=== PATIENT | male | born 1945 | race Caucasian/White ===

== ENCOUNTER → 2017-05-16 | Outpatient (CLI) | payer MEDICARE ==
[~2017-05-16] MED LIST: ASPI-892 PO; CALC-557 PO; HYDR-3730 PO; MULT-974 PO; OMEG-12 PO; SENN-75 PO; SIMV40TA4 PO
--- NOTE | 2017-05-16 13:00 | Diagnostic Imaging Report ---
INDICATION: Neck pain. COMPARISON: None. FINDINGS: Five views of the cervical column demonstrate normal alignment. There is no subluxation or fracture. Moderate degenerative changes are seen throughout the disc spaces and facet joints. There is no osseous lesion. IMPRESSION: Diffuse degenerative changes. Dictated by: Dictated on workstation # [id number]
== END ==
LOC: RAD 11:08
PROVIDERS: ATTEND Family Medicine
DX: M47.812 Spondylosis without myelopathy or radiculopathy, cervical region (principal)
CPT/HCPCS: 72040

== ENCOUNTER → 2018-06-17 | Outpatient (CLI) | payer MEDICARE ==
--- NOTE | 2018-06-18 12:39 | Diagnostic Imaging Report ---
EXAM: CT CHEST SCREENING WO INDICATION: 31-kpba-npfx smoking history. Current smoker. COMPARISON: Chest radiographs 08/15/2011. FINDINGS: Advanced centrilobular emphysema. There are also advanced fibrotic interstitial opacities, greatest in the peripheral lobes. Mild bronchiectasis. There are regions of honeycombing in both lower and the right upper lobes. Scattered calcified pleural plaques. No suspicious pulmonary nodule or mass. Scattered calcified granulomas. No pleural effusion or pneumothorax. No endobronchial lesions. No mediastinal, hilar or axillary lymphadenopathy. Normal heart size. No pericardial effusion. Moderate atherosclerotic calcifications including coronary. The visualized upper abdominal contents are unremarkable. No acute osseous findings. IMPRESSION: 1. No suspicious pulmonary nodule or mass. Recommend continued annual screening with low-dose chest CT in 12 months. 2. Advanced centrilobular emphysema. There is also advanced peripheral fibrosis, greatest in the lung bases. Calcified pleural plaques. There are regions of honeycombing suggesting UIP. 3. Moderate atherosclerotic calcifications including coronary. LUNG-RADS CATEGORY: 2. MODIFIER: S. Please note that the low-dose technique of this chest CT is of non-diagnostic quality. This study is only intended for lung cancer screening of high risk patients. Dictated by: Dictated on workstation # [id number]
== END ==
LOC: RAD 13:15
PROVIDERS: ATTEND Family Medicine
DX: Z12.2 Encounter for screening for malignant neoplasm of respiratory organs (principal); J84.10 Pulmonary fibrosis, unspecified; J43.2 Centrilobular emphysema; I25.10 Atherosclerotic heart disease of native coronary artery without angina pectoris; J92.9 Pleural plaque without asbestos; J98.4 Other disorders of lung; F17.210 Nicotine dependence, cigarettes, uncomplicated

== ENCOUNTER → 2018-06-27 | Outpatient (CLI) | payer MEDICARE ==
--- NOTE | 2018-06-27 10:41 | Diagnostic Imaging Report ---
Lumbar spine. INDICATION: Pain radiating into lower lumbar region. AP, lateral and spot lateral views were obtained. FINDINGS: There may be a very mild compression deformity of the inferior endplate of L1. This finding is no different than noted on the prior abdomen exam of 05/04/2009. The other vertebral body heights and alignment are generally within normal limits. The intervertebral spaces are fairly well-maintained. There is no fracture or acute bony abnormality evident. There is no sign of a paraspinal mass. There are calcifications overlying the right mid abdomen. These may be vascular calcifications within the right renal pelvis. These findings were also present on the prior exam. IMPRESSION: 1. There is no evidence for an acute bony abnormality. 2. If there is clinical concern regarding spinal stenosis or nerve root encroachment, then MRI would be recommended for further evaluation. Dictated by: Dictated on workstation # [id number]
== END ==
LOC: RAD 10:11
PROVIDERS: ATTEND Family Medicine
DX: M54.5 Low back pain (principal)
CPT/HCPCS: 72100

== ENCOUNTER → 2018-07-02 | Outpatient (CLI) | payer MEDICARE ==
[~2018-07-02] MED LIST changes: +RT-ALBUTEROL SULF 2.5 MG/3 ML PRE-MIX VIAL INH ONE; +RT-ALBUTEROL SULF 2.5 MG/3 ML PRE-MIX VIAL ONE
== END ==
LOC: RT 12:49
PROVIDERS: ATTEND Family Medicine
DX: J44.9 Chronic obstructive pulmonary disease, unspecified (principal); Z87.891 Personal history of nicotine dependence
CPT/HCPCS: 94060; 94726; 94729

== ENCOUNTER 2018-07-07 13:22 | Outpatient (RCR) | payer MEDICARE ==
[~2018-07-07 13:22] MED LIST changes: -RT-ALBUTEROL SULF 2.5 MG/3 ML PRE-MIX VIAL INH ONE; -RT-ALBUTEROL SULF 2.5 MG/3 ML PRE-MIX VIAL ONE
[2018-07-07 14:11] LABS: ABSOLUTE RETIC # 33 10e9/L (24-90); BASOPHILS % (AUTO) 0 % (0-10); EOSINOPHILS # (AUTO) 0.1 10^3/uL (0.0-0.3); EOSINOPHILS % (AUTO) 2 % (0-10); HEMATOCRIT 50 % (40-54); HEMOGLOBIN 16.9 G/DL (13.3-17.7); LYMPHOCYTES # (AUTO) 1.3 X 10^3 (1.0-4.0); LYMPHOCYTES % (AUTO) 15 % (12-44); MEAN CORPUSCULAR HEMOGLOBIN 34 PG (25-34); MEAN CORPUSCULAR HGB CONC 34 G/DL (32-36); MEAN CORPUSCULAR VOLUME 100 FL (80-99); MEAN PLATELET VOLUME 9.5 FL (7.4-10.4); MONOCYTES # (AUTO) 0.3 X 10^3 (0.0-1.0); MONOCYTES % (AUTO) 4 % (0-12); NEUTROPHILS # (AUTO) 6.8 X 10^3 (1.8-7.8); NEUTROPHILS % (AUTO) 80 % (42-75); PLATELET COUNT 156 10^3/uL (130-400); RED CELL DISTRIBUTION WIDTH 13.9 % (10.0-14.5); RETICULOCYTE % 0.65 % (0.50-2.40); WHITE BLOOD COUNT 8.6 10^3/uL (4.3-11.0)
[2018-07-07 14:42] LABS: ALBUMIN 3.6 GM/DL (3.2-4.5); BILIRUBIN,TOTAL 0.5 MG/DL (0.1-1.0); CALCIUM 9.3 MG/DL (8.5-10.1); CREATININE SERUM 1.28 MG/DL (0.60-1.30); POTASSIUM 3.9 MMOL/L (3.6-5.0); TOTAL PROTEIN 6.8 GM/DL (6.4-8.2)
== END 2018-10-05 | disposition home or self-care (01) ==
LOC: ONC 13:22
PROVIDERS: ATTEND Internal Medicine Hematology & Oncology
DX: R79.89 Other specified abnormal findings of blood chemistry (principal); J43.9 Emphysema, unspecified; I73.9 Peripheral vascular disease, unspecified; F17.210 Nicotine dependence, cigarettes, uncomplicated; Z86.718 Personal history of other venous thrombosis and embolism; Z80.42 Family history of malignant neoplasm of prostate
CPT/HCPCS: 36415; 80053; 82375; 82668; 83615; 85025; 85045; 99214

== ENCOUNTER 2018-09-02 10:30 | Outpatient (RCR) | payer MEDICARE | END 2018-09-02 17:00 | disposition home or self-care (01) | PROVIDERS: ATTEND Family Medicine | DX: M54.5 Low back pain (principal) ==

== ENCOUNTER 2019-04-22 10:27 | Outpatient (RCR) | payer MEDICARE ==
--- NOTE | 2019-04-15 14:15 | NUR ---
Pt scheduled for pulmonary rehab evaluation; looked up pt's file to see if current PFT in records and to get mailing address to send paperwork
[2019-04-28 09:28] VITALS: BP 121/63
[2019-05-05 09:30] VITALS: BP 142/60
[2019-05-05 10:43] VITALS: BP 110/60
[2019-05-07 09:20] VITALS: BP 122/63
[2019-05-07 10:20] VITALS: BP 100/45
[2019-05-14 09:15] VITALS: BP 130/50
[2019-05-14 10:05] VITALS: BP 110/48
[2019-05-19 09:15] VITALS: BP 100/52
[2019-05-19 10:30] VITALS: BP 100/48
[2019-05-21 09:30] VITALS: BP 124/60
[2019-05-21 10:38] VITALS: BP 130/50
[2019-05-26 09:23] VITALS: BP 110/42
[2019-05-26 10:30] VITALS: BP 150/60
[2019-06-02 09:30] VITALS: BP 100/63
[2019-06-02 10:40] VITALS: BP 120/43
[2019-06-04 09:20] VITALS: BP 145/60
[2019-06-04 10:25] VITALS: BP 120/60
[2019-06-09 09:15] VITALS: BP 125/60
[2019-06-09 10:18] VITALS: BP 105/40
[2019-06-16 09:30] VITALS: BP 118/40
[2019-06-16 10:42] VITALS: BP 115/50
[2019-06-18 09:20] VITALS: BP 110/60
[2019-06-18 10:18] VITALS: BP 100/40
[2019-06-25 08:35] VITALS: BP 143/80
[2019-06-25 09:13] VITALS: BP 120/50
== END 2019-07-21 | disposition home or self-care (01) ==
LOC: PULM 10:27
PROVIDERS: ATTEND Family Medicine
DX: J44.9 Chronic obstructive pulmonary disease, unspecified (principal)
CPT/HCPCS: 99211

== ENCOUNTER → 2019-09-04 | Outpatient (CLI) | payer MEDICARE ==
--- NOTE | 2019-09-04 12:57 | Diagnostic Imaging Report ---
CT Lung Screening INDICATION: Lung cancer screening, 56 pack year history of smoking, current smoker COMPARISON: 06/17/2018 TECHNIQUE: Noncontrast, low-dose CT imaging performed according to the lung cancer screening protocol. Auto Exposure Controls were utilize during the CT exam to meet ALARA standards for radiation dose reduction. FINDINGS: No pathologically enlarged lymph nodes within the chest. Scattered vascular calcifications within the thoracic aorta and its branch vessels, including within the coronary arteries. No aneurysmal dilatation of the thoracic aorta. The heart is within normal limits in size. No pericardial effusion. No pleural effusion. Mild thin partially calcified pleural plaques are again noted bilaterally. Moderate background centrilobular emphysematous changes. Stable pleural-based 6 mm pulmonary nodule within the left upper lobe, axial image 139. Significant reticular opacities and interstitial lung changes are again noted throughout the lungs bilaterally, greatest within the periphery of the lungs. This has a slight basilar predilection. Mild honeycombing within the lung bases is again noted. No new pulmonary nodule. The trachea is patent. The visualized upper abdomen is unremarkable. Scattered osseous degenerative changes without acute osseous abnormality. IMPRESSION: Stable moderate background fibroemphysematous changes and chronic obstructive pulmonary disease. Mild honeycombing does persist within the lung bases, consistent with a UIP pattern. Stable 6 mm pleural-based left upper lobe pulmonary nodule without new suspicious pulmonary nodule. Stable thin bilateral calcified pleural plaques. LUNG-RADS CATEGORY: 2S: Benign appearance or behavior. MODIFIER: S: Moderate background fibroemphysematous changes and chronic obstructive pulmonary disease. FOLLOW-UP: Continued annual screening with low dose CT of the chest in one year. Dictated by: Dictated on workstation # [id number]
== END ==
LOC: RAD 11:38
PROVIDERS: ATTEND Nurse Practitioner Family
DX: Z12.2 Encounter for screening for malignant neoplasm of respiratory organs (principal); J43.8 Other emphysema; J98.4 Other disorders of lung; J92.9 Pleural plaque without asbestos; R91.1 Solitary pulmonary nodule; F17.210 Nicotine dependence, cigarettes, uncomplicated

== ENCOUNTER → 2019-09-09 | Outpatient (CLI) | payer MEDICARE ==
--- NOTE | 2019-09-09 13:15 | Diagnostic Imaging Report ---
PROCEDURE: CT head without contrast. TECHNIQUE: Multiple contiguous axial images were obtained through the brain without the use of intravenous contrast. Auto Exposure Controls were utilized during the CT exam to meet ALARA standards for radiation dose reduction. INDICATION: Vertigo. Confusion. Memory loss. COMPARISON: None. FINDINGS: Age-indeterminate area of ischemia is visualized in the left frontal lobe. No evidence of hemorrhage or mass effect. No large acute territorial ischemia is seen. No midline shift or mass effect. Decreased attenuation is seen in the periventricular and subcortical white matter. The ventricles and cortical sulci are prominent. The basilar cisterns are patent and unremarkable. The calvarium is intact. The visualized paranasal sinuses are clear. IMPRESSION: 1. Focus of age-indeterminate ischemia involving the left frontal lobe in the precentral gyrus. Recommend correlation with patient's symptoms and if indicated, brain MRI to evaluate for acuity. 2. No evidence of hemorrhage or mass effect. No large acute territorial ischemia. 3. Chronic microvascular disease with generalized parenchymal volume loss. Dictated by: Dictated on workstation # [id number]
== END ==
LOC: RAD 12:13
PROVIDERS: ATTEND Family Medicine
DX: I67.82 Cerebral ischemia (principal); G93.89 Other specified disorders of brain; R42 Dizziness and giddiness; R41.3 Other amnesia; R41.0 Disorientation, unspecified
CPT/HCPCS: 70450

== ENCOUNTER → 2019-09-14 | Outpatient (CLI) | payer MEDICARE ==
--- NOTE | 2019-09-14 09:52 | Diagnostic Imaging Report ---
PROCEDURE: MR imaging of the brain without contrast. TECHNIQUE: Multiplanar, multisequence MR imaging of the brain was performed without contrast. INDICATION: Abnormal recent head CT raising question of a stroke, left frontal lobe. Studies performed for further evaluation. Correlation is made with head CT from 09/09/2019. The ventricles and sulci are prominent consistent with cerebral volume loss and age-related atrophy. Moderate periventricular and subcortical white matter signal abnormalities are noted consistent with chronic microvascular ischemia. Diffusion-weighted images are without diffusion restriction to suggest acute ischemia. No midline shift. No acute intra-axial or extra-axial hemorrhage is detected. Corpus callosum is unremarkable. The sella and parasellar structures are unremarkable. Note is made of absence of the normal flow void of the distal left internal carotid artery consistent with a left carotid occlusion. IMPRESSION: 1. Changes of chronic microvascular ischemia and cerebral atrophy. No acute intracranial hemorrhage or evidence of acute nonhemorrhagic infarct is identified. 2. Finding suggestive of distal left internal carotid artery occlusion. Correlation with carotid Doppler may be useful for further evaluation. Dictated by: Dictated on workstation # [id number]
== END ==
LOC: RAD 07:38
PROVIDERS: ATTEND Family Medicine
DX: I67.82 Cerebral ischemia (principal); G31.9 Degenerative disease of nervous system, unspecified
CPT/HCPCS: 70551

== ENCOUNTER → 2019-09-15 | Outpatient (CLI) | payer MEDICARE | LOC: CARD 08:26 | PROVIDERS: ATTEND Family Medicine | DX: I36.1 Nonrheumatic tricuspid (valve) insufficiency (principal); R01.1 Cardiac murmur, unspecified | CPT/HCPCS: 93306 ==

== ENCOUNTER → 2019-09-25 | Outpatient (CLI) | payer MEDICARE ==
[~2019-09-25] VITALS: Ht 177 cm; Wt 71.0 kg
[~2019-09-25] MED LIST changes: +CATHETER FLUSH 10 ML SYR IV PRN; +REGADENOSON 0.4 MG/5 ML SYR (LEXISCAN) IV ONE
--- NOTE | 2019-09-29 14:41 | STRESS TEST ---
DATE OF SERVICE: 09/25/2019 RESTING AND POST REGADENOSON TECHNETIUM-99M TETROFOSMIN SPECT CT IMAGING ORDERING PHYSICIAN: Dr. Doherty. PRIMARY PHYSICIAN: Dr. Becerra. CLINICAL DIAGNOSIS: Shortness of breath. Baseline images were carried out after injection of 10.9 mCi of technetium-99m Tetrofosmin. This was followed by 0.4 mg regadenoson and 30.1 mCi of technetium-99m Tetrofosmin for stress imaging. The electrocardiogram showed sinus rhythm at baseline. It did not change significantly with regadenoson infusion. The patient tolerated the procedure well. Review of images at rest and following stress does not indicate significant perfusion defects consistent with myocardial ischemia or infarction. Gated images show normal global left ventricular systolic function, normal regional wall motion. Left ventricular end diastolic volume is 81 mL. TID is absent (1.09). CONCLUSIONS: 1. No evidence of any significant myocardial infarction or ischemia on this study. 2. Normal regional wall motion. 3. Normal global left ventricular systolic function with a calculated ejection fraction of 54%. Job ID: [id number] DocumentID: [id number] Dictated Date: 09/29/2019 14:31:49 Contracts Administrator Date: 09/29/2019 14:39:10 Dictated By: MAULIK DOHERTY MD, MA, FACP, FACC,
== END ==
LOC: CARD 06:57
PROVIDERS: ATTEND Internal Medicine Cardiovascular Disease
DX: I49.3 Ventricular premature depolarization (principal); I65.23 Occlusion and stenosis of bilateral carotid arteries; Z72.0 Tobacco use
CPT/HCPCS: 78452; 93017; A9502

== ENCOUNTER 2019-10-02 10:08 | Outpatient (RCR) | payer MEDICARE ==
[~2019-10-02 10:08] MED LIST changes: -CATHETER FLUSH 10 ML SYR IV PRN; -REGADENOSON 0.4 MG/5 ML SYR (LEXISCAN) IV ONE
== END 2019-10-02 11:56 | disposition home or self-care (01) ==
PROVIDERS: ATTEND Family Medicine
DX: M54.6 Pain in thoracic spine (principal); M54.5 Low back pain

== ENCOUNTER 2020-03-09 08:47 | Observation (INO) | payer MEDICARE ==
[~2020-03-09] VITALS: Ht 177.8 cm; Wt 68.7 kg
--- NOTE | 2020-03-09 08:47 | NUR ---
PATIENT HAS CELL PHONE AND WILL KEEP FAMILY UPDATED.
--- NOTE | 2020-03-09 09:10 | ED Neurological Problem ---
General Chief Complaint: Neurological Problems Stated Complaint: STROKE LIKE SYMPTOMS Source: patient Exam Limitations: no limitations History of Present Illness Date Seen by Provider: Mar 09, 2020 Time Seen by Provider: 09:00 Initial Comments Patient is a 74-year-old male who presents to the emergency room today with a chief complaint of dizziness, having to hold onto the [place] to walk this morning. Patient states that he got up and was fine and went out to his garage to smoke a cigarette. He states by the time he was coming back into the house he was having to hold onto the [place] and railings to get back into the home. He denies any syncopal episodes. He denies any chest pain or shortness of breath. He denies any GI symptoms such as nausea vomiting or diarrhea. No problems with bladder. Patient denies any headache. He does have chronic tinnitus. He denies any vision changes other than being "swimmy and dizzy". He denies any unilateral numbness, weakness or tingling. He states he had a similar episode last October when he was told he had a "TIA". By EMS report prior to arrival the patient's blood sugar was 71. He was given some oral glucose and his sugar is now above 100. He states that he takes 2 baby aspirin daily. All other review of systems reviewed and negative except as stated above. Timing/Duration: 1-3 hours Associated Symptoms: No confusion, No loss of consciousness, No numbness in legs/feet, No paresthesia, No slurred speech, No tingling in legs/feet; trouble walking Allergies and Home Medications Allergies Coded Allergies: No Known Drug Allergies (Unverified , 01/07/12) Home Medications Aspirin 81 Mg Tabec, 81 MG PO DAILY, (Reported) Calcium 500 Mg Tablet, 500 MG PO DAILY, (Reported) Hydrocodone/Acetaminophen 1 Each Tablet, 1-2 EACH PO Q6H Prescribed by: SOLOMON MAO on 04/22/14 1040 Multivitamin 1 Each Tablet, 1 EACH PO DAILY, (Reported) [place]-3/Dha/Epa/Fish Oil 1 Each Capsule.dr, 1 EACH PO DAILY, (Reported) Sennosides/Docusate Sodium 1 Each Tablet, 1 EACH PO DAILY, (Reported) Simvastatin 40 Mg Tablet, 40 MG PO DAILY, (Reported) Patient Home Medication List Home Medication List Reviewed: Yes Review of Systems Review of Systems Constitutional: no symptoms reported Eyes: No Symptoms Reported Ears, Nose, Mouth, Throat: no symptoms reported Respiratory: no symptoms reported Cardiovascular: no symptoms reported Gastrointestinal: no symptoms reported Genitourinary: no symptoms reported Musculoskeletal: no symptoms reported Skin: no symptoms reported Psychiatric/Neurological: Other (Acute dizziness) Past Zqgchyy-Vlpiyx-Ebyxpl Hx Immunizations Up To Date Date of Pneumonia Vaccine: Apr 08, 2008 Date of Influenza Vaccine: Jan 06, 2014 Physical Exam Vital Signs Vital Signs - First Documented 03/09/20 08:47 Temp 35.0 Pulse 52 Resp 18 B/P (MAP) 161/83 (109) Pulse Ox 98 O2 Delivery Nasal Cannula Capillary Refill : Height, Weight, BMI Height: 5'10.00" Weight: 165lbs. 4.0oz. 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, no motor/sensory deficits, alert, normal mood/affect, oriented x 3; No abnormal cerebellar tests, No abnormal software reverse engineer II-XII, No aphasia, No EOM palsy, No facial droop, No motor weakness, No sensory deficit, No disoriented x 3 Crainal Nerves: normal hearing, normal speech, PERRL; No abnormal speech, No facial asymmetry, No facial droop, No facial paresthesias, No facial weakness, No tongue deviation to R, No tongue deviation to L Coordination/Gait: normal finger to nose, abnormal gait (Gait not tested secondary to patient's instability and "dizziness"), ABN nose to finger (R) (slight pass pointming); No positive Romberg's sign Motor/Sensory: no motor deficit, no sensory deficit, no pronator drift Skin: normal color, warm/dry Progress/Results/Core Measures Results/Orders Lab Results Laboratory Tests Test 03/09/20 08:54 Range/Units White Blood Count 6.3 4.3-11.0 10^3/uL Red Blood Count 5.39 4.30-5.52 10^6/uL Hemoglobin 17.8 H 13.3-17.7 g/dL Hematocrit 56 H 40-54 % Mean Corpuscular Volume 104 H 80-99 fL Mean Corpuscular Hemoglobin 33 25-34 pg Mean Corpuscular Hemoglobin Concent 32 32-36 g/dL Red Cell Distribution Width 13.3 10.0-14.5 % Platelet Count 143 130-400 10^3/uL Mean Platelet Volume 9.8 9.0-12.2 fL Immature Granulocyte % (Auto) 0 % Neutrophils (%) (Auto) 67 42-75 % Lymphocytes (%) (Auto) 20 12-44 % Monocytes (%) (Auto) 8 0-12 % Eosinophils (%) (Auto) 3 0-10 % Basophils (%) (Auto) 1 0-10 % Neutrophils # (Auto) 4.2 1.8-7.8 10^3/uL Lymphocytes # (Auto) 1.3 1.0-4.0 10^3/uL Monocytes # (Auto) 0.5 0.0-1.0 10^3/uL Eosinophils # (Auto) 0.2 0.0-0.3 10^3/uL Basophils # (Auto) 0.1 0.0-0.1 10^3/uL Immature Granulocyte # (Auto) 0.0 0.0-0.1 10^3/uL Sodium Level 137 135-145 MMOL/L Potassium Level 4.7 3.6-5.0 MMOL/L Chloride Level 98 98-107 MMOL/L Carbon Dioxide Level 28 21-32 MMOL/L Anion Gap 11 5-14 MMOL/L Blood Urea Nitrogen 21 H 7-18 MG/DL Creatinine 1.20 0.60-1.30 MG/DL Estimat Glomerular Filtration Rate 59 BUN/Creatinine Ratio 18 Glucose Level 109 H 70-105 MG/DL Calcium Level 9.0 8.5-10.1 MG/DL My Orders Orders - SON VALDES MD Ct Head Wo (03/09/20 09:03) Cbc With Automated Diff (03/09/20 09:03) Basic Metabolic Panel (03/09/20 09:03) Ed Iv/Invasive Line Start (03/09/20 09:03) Vital Signs/I&O 03/09/20 08:47 Temp 35.0 Pulse 52 Resp 18 B/P (MAP) 161/83 (109) Pulse Ox 98 O2 Delivery Nasal Cannula Diagnostic Imaging Diagonstic Imaging: CT Plain Films/CT/US/NM/MRI: head Comments [facility], [place] NAME: JEROD L[facility]YD [facility] REC#: [id number] PT STATUS: REG ER : 1945 PHYSICIAN: SON VALDES MD ADMIT DATE: 03/09/20/ER Draft Date of Exam:03/09/20 CT HEAD WO INDICATION: Dizziness. Altered balance. TECHNIQUE: Routine non contrast-enhanced axial images were obtained from the skull base to the vertex. Auto Exposure Controls were utilized during the CT exam to meet ALARA standards for radiation dose reduction COMPARISON: 09/09/2019 FINDINGS: The ventricles and cortical sulci are diffusely prominent, compatible with age-related volume loss. There are confluent areas of abnormal, low attenuation in the periventricular white matter. This is consistent with chronic small vessel ischemic changes. There is no midline shift or mass-effect. No acute intra-axial hemorrhage is seen. There are no abnormal areas of increased or decreased density to suggest acute hemorrhage or edema. No extra-axial masses or collections are present. The bony calvarium is intact. The visualized paranasal sinuses are unremarkable. The mastoid air cells are clear. IMPRESSION: 1. No acute intracranial abnormality. No CT evidence of mass, acute infarct or intracranial hemorrhage. 2. Chronic small vessel ischemic changes in the deep white matter Dictated on workstation # [id number] Dict: 03/09/2041 Trans: 03/09/20 0945 REPLACED BY [facility] [id number] Interpreted by: HALI VALDEZ MD Electronically signed by: Departure Communication (Admissions) Time/Spoke to Admitting Phy: 10:[address] Becerra at 1045 accepts patient for observation admission. Requests MRA head and neck Impression Primary Impression: Ataxia Disposition: ADMITTED INPATIENT Condition: Stable Admissions Decision to Admit Reason: Admit from ER (General) Decision to Admit/Date: Mar 09, 2020 Time/Decision to Admit Time: 10:59 Departure-Patient Inst. Referrals: PARISH BECERRA DO (PCP/Family) Primary Care Physician SON VALDES MD Mar 09, 2020 09:10
[2020-03-09 09:19] LABS: BASOPHILS # (AUTO) 0.1 10^3/uL (0.0-0.1); BASOPHILS % (AUTO) 1 % (0-10); EOSINOPHILS # (AUTO) 0.2 10^3/uL (0.0-0.3); EOSINOPHILS % (AUTO) 3 % (0-10); HEMATOCRIT 56 % (40-54); HEMOGLOBIN 17.8 g/dL (13.3-17.7); LYMPHOCYTES # (AUTO) 1.3 10^3/uL (1.0-4.0); LYMPHOCYTES % (AUTO) 20 % (12-44); MEAN CORPUSCULAR HEMOGLOBIN 33 pg (25-34); MEAN CORPUSCULAR HGB CONC 32 g/dL (32-36); MEAN CORPUSCULAR VOLUME 104 fL (80-99); MEAN PLATELET VOLUME 9.8 fL (9.0-12.2); MONOCYTES # (AUTO) 0.5 10^3/uL (0.0-1.0); MONOCYTES % (AUTO) 8 % (0-12); NEUTROPHILS # (AUTO) 4.2 10^3/uL (1.8-7.8); NEUTROPHILS % (AUTO) 67 % (42-75); PLATELET COUNT 143 10^3/uL (130-400); WHITE BLOOD COUNT 6.3 10^3/uL (4.3-11.0)
[2020-03-09 09:24] LABS: POTASSIUM 4.7 MMOL/L (3.6-5.0)
[2020-03-09 09:29] LABS: CREATININE SERUM 1.2 MG/DL (0.60-1.30)
--- NOTE | 2020-03-09 09:45 | Diagnostic Imaging Report ---
INDICATION: Dizziness. Altered balance. TECHNIQUE: Routine non contrast-enhanced axial images were obtained from the skull base to the vertex. Auto Exposure Controls were utilized during the CT exam to meet ALARA standards for radiation dose reduction COMPARISON: 09/09/2019 FINDINGS: The ventricles and cortical sulci are diffusely prominent, compatible with age-related volume loss. There are confluent areas of abnormal, low attenuation in the periventricular white matter. This is consistent with chronic small vessel ischemic changes. There is no midline shift or mass-effect. No acute intra-axial hemorrhage is seen. There are no abnormal areas of increased or decreased density to suggest acute hemorrhage or edema. No extra-axial masses or collections are present. The bony calvarium is intact. The visualized paranasal sinuses are unremarkable. The mastoid air cells are clear. IMPRESSION: 1. No acute intracranial abnormality. No CT evidence of mass, acute infarct or intracranial hemorrhage. 2. Chronic small vessel ischemic changes in the deep white matter Dictated by: Dictated on workstation # [id number]
--- NOTE | 2020-03-09 10:43 | NUR ---
DR CASTRO WAITING FOR CALL BACK FROM PATIENT
--- NOTE | 2020-03-09 11:08 | NUR ---
PATIENT INFORMED THAT GOING TO BE ADMITTED BUT WAITING ON A BED
--- NOTE | 2020-03-09 11:30 | NUR ---
AMB TO BATHROOM WITH HELP.
--- NOTE | 2020-03-09 11:42 | NUR ---
CON'T TO WAIT FOR BED
[2020-03-09 12:36] VITALS: BP 122/60
[2020-03-09] MEDS ORDERED: CATHETER FLUSH 10 ML SYR IV PRN (12:45)
[2020-03-09] MEDS ORDERED: GADOBUTROL 7.5 MMOL/7.5 ML (GADAVIST) VIAL IV ONE (13:30)
--- NOTE | 2020-03-09 14:58 | Diagnostic Imaging Report ---
PROCEDURE: MR angiography neck with and without contrast. TECHNIQUE: Pre and post contrast-enhanced MR angiography of the neck was performed. Source data was reformatted into rotating MIP projections. INDICATION: Dizziness. COMPARISON: CT head without contrast 03/09/2020. MRI brain without contrast 09/14/2019. FINDINGS: Both [id number] noncontrast and contrast-enhanced MRA of the neck confirm complete occlusion of the left internal carotid artery. There appears to be some mild distal collateralization, as it enters the cavernous sinus. There is less than 50% narrowing of the right internal carotid artery origin. No high-grade narrowing or aneurysm is seen within the bilateral common, vertebral or right internal carotid arteries. The visualized [place] appears intact. IMPRESSION: Complete occlusion of the left internal carotid artery. Dictated by: Dictated on workstation # [id number]
[2020-03-09] MEDS ORDERED: CALC-823 PO (15:08)
[2020-03-09] MEDS ORDERED: ASPI-1238 PO (15:08)
[2020-03-09] MEDS ORDERED: ESCI20TA PO (15:08)
[2020-03-09] MEDS ORDERED: DOCU100T7 PO (15:08)
[2020-03-09] MEDS ORDERED: SIMV80TA21 PO (15:08)
--- NOTE | 2020-03-09 15:09 | NUR ---
SPOKE WITH THE PT AND CALLED JOSIAH DENNIS TO COMPLETE THE MED REC 11-27-2019 SIMVASTATIN 80MG #45/90DS 01-07-2020 ESCITALOPRAM 20MG #45/DS OTC MEDS: ASPIRIN 81MG (2 TABS DAILY) STOOL SOFTENER CALCIUM
--- NOTE | 2020-03-09 15:13 | Diagnostic Imaging Report ---
PROCEDURE: MR angiography of the brain without the use of contrast. TECHNIQUE: 3D [id number] non contrast enhanced MR angiography of the head was performed. A source data was reformatted into rotating MIP projections. INDICATION: Dizziness. COMPARISON: CT head without contrast 03/09/2020. MRI brain without contrast 09/14/2019. FINDINGS: Noncontrast [id number] intracranial MRA demonstrates the occluded left internal carotid artery. There is a scant amount of flow likely due to collateralization in the petrous and cavernous segments of the left internal carotid artery. The left MCA is reconstituted via patent anterior and posterior communicating arteries. 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 The basilar, intracranial bilateral vertebral, anterior cerebral, middle cerebral and posterior cerebral arteries demonstrate no high-grade narrowing, aneurysm or dissection. The visualized dural venous sinuses are patent. IMPRESSION: 1. Occluded left internal carotid artery as was seen on 09/14/2019. The left anterior circulation is reconstituted by patent anterior and posterior communicating arteries. 2. 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 Dictated by: Dictated on workstation # [id number]
--- NOTE | 2020-03-09 15:29 | NUR ---
CALLED DR VALDEZ ABOUT MRA AND DVT PROPHYLAXIS
[2020-03-09] MEDS ORDERED: ENOXAPARIN 40 MG/0.4 ML (LOVENOX) SYR SC SCH (15:30)
[2020-03-09 15:38] VITALS: BP 122/60
[2020-03-09] MEDS ORDERED: RT-ALBUTEROL/IPRATROPIUM 3 ML (DUONEB) VIAL INH PRN (15:45)
[2020-03-09 16:00] VITALS: BP 113/54
[2020-03-09] MEDS: ASPIRIN E.C. 81 MG (ECOTRIN) TAB PO SCH (16:26)
[2020-03-09] MEDS: CATHETER FLUSH 10 ML SYR IV SCH ×2 (16:27→21:05)
[2020-03-09 20:00] VITALS: BP 136/63
[2020-03-09] MEDS: RT-ALBUTEROL/IPRATROPIUM 3 ML (DUONEB) VIAL INH SCH (21:21)
[2020-03-10 00:32] VITALS: BP 106/56
--- NOTE | 2020-03-10 02:00 | NUR ---
DOWN TIME SEE CHART.
[2020-03-10] MEDS: CATHETER FLUSH 10 ML SYR IV SCH (06:51)
[2020-03-10] MEDS: RT-ALBUTEROL/IPRATROPIUM 3 ML (DUONEB) VIAL INH SCH (07:16)
[2020-03-10] MEDS ORDERED: ASPIRIN E.C. 81 MG (ECOTRIN) TAB PO SCH (09:00)
[2020-03-10] MEDS: ASPIRIN E.C. 81 MG (ECOTRIN) TAB PO SCH (09:29)
[2020-03-10 12:00] VITALS: BP 120/56
[2020-03-10] MEDS ORDERED: RT-ALBUINH INH (12:56)
[2020-03-10 14:05] VITALS: BP 120/56
--- NOTE | 2020-03-10 18:46 | Short Stay Summary ---
History of Present Illness History of Present Illness Reason for visit/HPI This is a 74 year old male who was brought to the emergency room with acute onset of vertigo and ataxia. His CT of the brain was negative but due to his history it was felt that he should be admitted an undergo MRA of the neck and brain as well as neurological checks. Date of Admission Mar 09, 2020 at 10:59 Date of Discharge Mar 10, 2020 at 14:05 Time Seen by Provider: 12:30 Attending Physician Jenna Becerra DO Admitting Physician Jenna Becerra DO Consult Allergies and Home Medications Allergies Coded Allergies: No Known Drug Allergies (Unverified , 01/07/12) Home Medications Albuterol Sulfate 1 Puff Puff, 2 PUFF INH Q4H 1 PUFF = 90 MCG Prescribed by: JENNA BECERRA on 03/10/20 1256 Aspirin 81 Mg Tablet.dr, 162 MG PO DAILY, (Reported) TAKES 2 (81MG) TABS Calcium Carbonate 500 Mg Tablet, 500 MG PO DAILY, (Reported) Docusate Sodium 100 Mg Tablet, 100 MG PO DAILY, (Reported) Escitalopram Oxalate 20 Mg Tablet, 10 MG PO DAILY, (Reported) TAKES (20MG) TAB Simvastatin 80 Mg Tablet, 40 MG PO HS, (Reported) TAKES (80MG) TAB Patient Home Medication List Home Medication List Reviewed: Yes Past Eekyucy-Tsuizy-Wpsjzt Hx Patient Social History Marrital Status: Employed/Student: part-time employed Alcohol Use: Denies Use Recreational Drug Use: No Smoking Status: Current Everyday Smoker Recent Foreign Travel: No Contact w/other who traveled: No Recent Infectious Disease Expo: No Immunizations Up To Date Date of Pneumonia Vaccine: Apr 08, 2008 Date of Influenza Vaccine: Jan 07, 2020 Surgeries Yes (CTR, BILAT CEA, LEFT SHOULDER SCOPE, PROSTATE SURGERY, FINGER RE ATTACHMENT) Respiratory Yes Cardiovascular Yes High Cholesterol Neurological No Genitourinary No Gastrointestinal No Musculoskeletal No Chronic Back Pain Endocrine History of Endocrine Disorders: No Cancer No Psychosocial History of Psychiatric Problem: Yes Behavioral Health Disorders: Depression Blood Transfusions History of Blood Disorders: Yes (THROMBOSED VEIN IN LEG) Family Medical History Family Hx: Cardiovascular disease G8 BROTHER Neoplasm 19 FATHER (protaste cancer) Review of Systems Constitutional: weakness EENTM: No see HPI, No no symptoms reported, No ear discharge, No hearing loss, No ear pain, No blurred vision, No double vision, No eye pain, No tearing, No vision loss, No dental problems, No hoarseness, No mouth pain, No mouth swellin g, No epistaxis, No nose congestion, No nose pain, No throat pain, No throat swelling, No other Respiratory: dyspnea on exertion Cardiovascular: No no symptoms reported, No see HPI, No chest pain, No edema, No Hx of Intervention, No palpitations, No syncope, No vascular heart diseas, No other Gastrointestinal: No RUQ, No LUQ, No RLQ, No LLQ, No no symptoms reported, No see HPI, No abdominal pain, No constipation, No diarrhea, No dysphagia, No hematemesis, No heartburn, No jaundice, No loss of appetite, No melena, No nausea, No vomiting, No other Genitourinary: No no symptoms reported, No see HPI, No decreased output, No discharge, No dysuria, No frequency, No hematuria, No hesitancy, No incontinence, No nocturia, No pain, No other Musculoskeletal: No no symptoms reported, No see HPI, No back pain, No gout, No joint pain, No joint swelling, No muscle pain, No muscle stiffness, No muscle cramps, No muscle twitching, No muscle weakness, No neck pain, No other Skin: No no symptoms reported, No see HPI, No change in color, No change in hair/nails, No dryness, No hx of skin cancer, No lesions, No lumps, No pruritus, No rash, No other Psychiatric/Neurological: Other (vertigo with ataxia) Physical Exam Vital Signs Vital Signs - First Documented 03/09/20 03/09/20 08:47 12:13 Temp 35.0 Pulse 52 Resp 18 B/P (MAP) 161/83 (109) Pulse Ox 98 O2 Delivery Nasal Cannula O2 Flow Rate 2.00 Capillary Refill : Less Than 3 Seconds Height, Weight, BMI Height: 5'10.00" Weight: 165lbs. 4.0oz. 77.045991tp; 21.73 BMI Method: General Appearance: No Apparent Distress HEENT: Normal ENT Inspection Neck: Supple Respiratory: Decreased Breath Sounds Cardiovascular: Regular Rate, Rhythm, Gallop/S4 Gastrointestinal: Normal Bowel Sounds, Non Tender, Soft Rectal: Deferred Back: No CVA Tenderness, No Vertebral Tenderness Extremity: Non Tender, No Calf Tenderness, No Pedal Edema Neurologic/Psychiatric: Alert, Oriented x3, No Motor/Sensory Deficits, Normal Mood/Affect Skin: Warm/Dry Clinical Quality Measures DVT/VTE Risk/Contraindication: Risk Factor Score Per Nursin RFS Level Per Nursing on Admit: 2=Moderate Short Stay Diagnosis Discharge Diagnosis-Short Stay Admission Diagnosis: 1. Acute Vertigo/Ataxia 2. History of CVA 3. 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 COPD 5. Tobacco Abuse 6. Nocturnal Hypoxia Final Discharge Diagnosis: 1. Acute Vertigo/Ataxia--resolved 2. History of CVA 3. 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 COPD 5. Tobacco Abuse 6. Nocturnal Hypoxia 7. 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 Secondary Polycythemia Conclusion Conclusion/Plan This is a 74 year old male admitted after he had the onset of acute vertigo and ataxia. His initial CT of the head done in the emergency room was negative. He was admitted and placed on aspirin along with lovenox for DVT prophylaxis and neurochecks. He had no further vertigo or ataxia after admission and developed no other neurological symptoms. He did undergo a MRA of the neck and brain which showed a known complete occlusion of the left internal carotid artery and a 50% stenosis of the right ICA. There was no acute stroke noted. He did require oxygen on admission due to low oxygen saturation but this was discontinued by the following morning. I did discuss with the patient that his ongoing smoking was a big risk factor for worsening stenosis and increased his risk of another stroke. I also discussed with the patient that his hypoxia he experiences at times will contribute to diminished blood flow to his brain and could cause worsening issues. The patient has refused continuous oxygen and is not compliant with nocturnal oxygen as well. He is also not compliant with using inhalers routinely for his COPD. He will be discharged home on aspirin, pravastatin, and escitalopram with encouragement to resume albuterol routinely and use his oxygen routinely as well as smoking cessation. JENNA BECERRA DO Mar 10, 2020 18:46
== END 2020-03-10 14:05 | disposition home or self-care (01) ==
LOC: EDUNIT# 08:47 → ER 08:49 → 4TH 10:59
PROVIDERS: ADMIT Family Medicine; ATTEND Family Medicine
DX: R27.0 Ataxia, unspecified (principal); E78.00 Pure hypercholesterolemia, unspecified; G89.29 Other chronic pain; M54.5 Low back pain; F32.9 Major depressive disorder, single episode, unspecified; I65.22 Occlusion and stenosis of left carotid artery; J44.9 Chronic obstructive pulmonary disease, unspecified; D75.1 Secondary polycythemia; F17.210 Nicotine dependence, cigarettes, uncomplicated; Z79.51 Long term (current) use of inhaled steroids; Z79.82 Long term (current) use of aspirin; Z79.899 Other long term (current) drug therapy; Z80.42 Family history of malignant neoplasm of prostate
CPT/HCPCS: 70450; 70544; 70549; 80048; 85025; 94640 ×2; 94760 ×2; 99284; G0378; 36415

== ENCOUNTER 2020-06-22 15:09 | Emergency (ER) | payer MEDICARE ==
[~2020-06-22] VITALS: Ht 177 cm; Wt 71.0 kg
[~2020-06-22 15:09] MED LIST changes: +ASPI-1238 PO; +CALC-823 PO; +DOCU100T7 PO; +ESCI20TA PO; +RT-ALBUINH INH; +SIMV80TA21 PO
[2020-06-22 15:52] LABS: BILIRUBIN,URINE NEGATIVE (NEGATIVE); CLARITY,URINE OTHER; COLOR,URINE RED; GLUCOSE, URINE (UA) NEGATIVE (NEGATIVE); KETONES,URINE NEGATIVE (NEGATIVE); LEUKOCYTE ESTERASE ,URINE NEGATIVE (NEGATIVE); NITRITE,URINE NEGATIVE (NEGATIVE); PH,URINE 6.5 (5-9); PROTEIN,URINE 1+ (NEGATIVE)
[2020-06-22 16:00] LABS: BASOPHILS % (AUTO) 0 % (0-10); EOSINOPHILS # (AUTO) 0.3 10^3/uL (0.0-0.3); EOSINOPHILS % (AUTO) 4 % (0-10); HEMATOCRIT 51 % (40-54); HEMOGLOBIN 16.5 g/dL (13.3-17.7); LYMPHOCYTES # (AUTO) 1.3 X 10^3 (1.0-4.0); LYMPHOCYTES % (AUTO) 17 % (12-44); MEAN CORPUSCULAR HEMOGLOBIN 33 pg (25-34); MEAN CORPUSCULAR HGB CONC 32 g/dL (32-36); MEAN CORPUSCULAR VOLUME 104 fL (80-99); MEAN PLATELET VOLUME 9.6 fL (9.0-12.2); MONOCYTES # (AUTO) 0.7 X 10^3 (0.0-1.0); MONOCYTES % (AUTO) 9 % (0-12); NEUTROPHILS # (AUTO) 5.4 X 10^3 (1.8-7.8); NEUTROPHILS % (AUTO) 70 % (42-75); PLATELET COUNT 154 10^3/uL (130-400); WHITE BLOOD COUNT 7.7 10^3/uL (4.3-11.0)
[2020-06-22 16:02] LABS: BACTERIA,URINE FEW /HPF; RBC,URINE 50-100 /HPF
--- NOTE | 2020-06-22 16:04 | ED GU-Male ---
General Chief Complaint: - Urinary Stated Complaint: BLOOD IN URINE Nursing Triage Note: PT AMB TO ROOM 5 PT CO OF HAVING BLOOD IN URINE STARTED THIS AFTERNOON, PT DENIES PAIN OR FEVER. Source: patient, family Exam Limitations: no limitations History of Present Illness Date Seen by Provider: Jun 22, 2020 Time Seen by Provider: 15:40 Initial Comments Patient is a 75-year-old male who presents to the emergency department today with a chief complaint of gross hematuria. Patient states that he noticed this afternoon that he was urinating blood. He states that outside it was much darker appearing that and is currently. Patient denies any dysuria, urgency or frequency. He denies any recent trauma to his back or abdomen. No falls. 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 Patient denies any fevers, chills, abdominal pain, nausea, vomiting. No symptoms. He has never had hematuria before. He has seen Dr. Wills at [facility] in [facility] in the past but never for kidney stones or hematuria. Patient has had mildly decreased appetite over the past several days. He is quite a heavy smoker. All other review of systems reviewed and negative except as stated above. Timing/Duration: this afternoon Severity/Quality: moderate Activities at Onset: none Prior Genitourinary Problems: none Sexual Frazer History: not active Associated Symptoms: denies symptoms Allergies and Home Medications Allergies Coded Allergies: No Known Drug Allergies (Unverified , 01/07/12) Home Medications Albuterol Sulfate 1 Puff Puff, 2 PUFF INH Q4H 1 PUFF = 90 MCG Prescribed by: PARISH VALDEZ on 03/10/20 1256 Aspirin 81 Mg Tablet.dr, 162 MG PO DAILY, (Reported) TAKES 2 (81MG) TABS Calcium Carbonate 500 Mg Tablet, 500 MG PO DAILY, (Reported) Docusate Sodium 100 Mg Tablet, 100 MG PO DAILY, (Reported) Escitalopram Oxalate 20 Mg Tablet, 10 MG PO DAILY, (Reported) TAKES (20MG) TAB Simvastatin 80 Mg Tablet, 40 MG PO HS, (Reported) TAKES (80MG) TAB Patient Home Medication List Home Medication List Reviewed: Yes Review of Systems Review of Systems Constitutional: see HPI EENTM: no symptoms reported Respiratory: no symptoms reported Cardiovascular: no symptoms reported Gastrointestinal: no symptoms reported Genitourinary: hematuria Musculoskeletal: no symptoms reported Skin: no symptoms reported All Other Systemes Reviewed Negative Unless Noted: Yes Past Byegwrh-Ocdrov-Vqyrxf Hx Patient Social History Alcohol Use: Denies Use Smoking Status: Current Everyday Smoker Type Used: Cigarettes Recent Infectious Disease Expo: No Recent Hopitalizations: No Immunizations Up To Date Date of Pneumonia Vaccine: Apr 08, 2008 Date of Influenza Vaccine: Jan 07, 2020 Past Medical History Surgeries: Yes (CTR, BILAT CEA, LEFT SHOULDER SCOPE, PROSTATE SURGERY, FINGER REATTACHMENT) Respiratory: Yes COPD Cardiac: Yes High Cholesterol Neurological: No (CURRENTLY HAS BRAIN ANEURYSM BEING CHECKED) Genitourinary: No Gastrointestinal: No Musculoskeletal: No Chronic Back Pain Endocrine: No Cancer: No Psychosocial: Yes Depression Integumentary: No Blood Disorders: Yes (THROMBOSED VEIN IN LEG) Family Medical History Cardiovascular disease G8 BROTHER Neoplasm 19 FATHER (protaste cancer) Physical Exam Vital Signs Vital Signs - First Documented 06/22/20 15:20 Temp 36.0 Pulse 68 Resp 18 B/P (MAP) 138/72 (94) Pulse Ox 90 O2 Delivery Room Air Capillary Refill : Less Than 3 Seconds Height, Weight, BMI Height: 5'10.00" Weight: 165lbs. 4.0oz. 77.614230nn; 22.00 BMI Method: General Appearance: WD/WN, no apparent distress Neck: normal inspection Cardiovascular: regular rate, rhythm Respiratory: lungs clear, normal breath sounds, no respiratory distress, no accessory muscle use Gastrointestinal: non tender, soft Back: no CVA tenderness Extremities: non-tender, normal inspection, no pedal edema Neurologic/Psychiatric: alert, normal mood/affect, oriented x 3 Skin: normal color, warm/dry Progress/Results/Core Measures Suspected Sepsis Recent Fever Within 48 Hours: No Infection Criteria Present: None New/Unexplained Altered Menta: No Sepsis Screen: No Definite Risk SIRS Temperature: Pulse: 68 Respiratory Rate: 18 Laboratory Tests 06/22/20 15:50: White Blood Count 7.7 Blood Pressure 138 /72 Mean: 94 Laboratory Tests 06/22/20 15:50: Creatinine 1.35H, Platelet Count 154 Results/Orders Lab Results Laboratory Tests Test 06/22/20 15:30 06/22/20 15:50 Range/Units Urine Color RED H Urine Clarity OTHER Urine pH 6.5 5-9 Urine Specific [place] <=1.005 1.016-1.022 Urine Protein 1+ H NEGATIVE Urine Glucose (UA) NEGATIVE NEGATIVE Urine Ketones NEGATIVE NEGATIVE Urine Nitrite NEGATIVE NEGATIVE Urine Bilirubin NEGATIVE NEGATIVE Urine Urobilinogen 0.2 < = 1.0 MG/DL Urine Leukocyte Esterase NEGATIVE NEGATIVE Urine RBC (Auto) 3+ H NEGATIVE Urine RBC 50-100 H /HPF Urine WBC 2-5 /HPF Urine Squamous Epithelial Cells 5-10 /HPF Urine Crystals NONE /LPF Urine Bacteria FEW H /HPF Urine Casts NONE /LPF Urine Mucus NEGATIVE /LPF Urine Culture Indicated YES White Blood Count 7.7 4.3-11.0 10^3/uL Red Blood Count 4.94 4.30-5.52 10^6/uL Hemoglobin 16.5 13.3-17.7 g/dL Hematocrit 51 40-54 % Mean Corpuscular Volume 104 H 80-99 fL Mean Corpuscular Hemoglobin 33 25-34 pg Mean Corpuscular Hemoglobin Concent 32 32-36 g/dL Red Cell Distribution Width 13.4 10.0-14.5 % Platelet Count 154 130-400 10^3/uL Mean Platelet Volume 9.6 9.0-12.2 fL Immature Granulocyte % (Auto) 0 % Neutrophils (%) (Auto) 70 42-75 % Lymphocytes (%) (Auto) 17 12-44 % Monocytes (%) (Auto) 9 0-12 % Eosinophils (%) (Auto) 4 0-10 % Basophils (%) (Auto) 0 0-10 % Neutrophils # (Auto) 5.4 1.8-7.8 X 10^3 Lymphocytes # (Auto) 1.3 1.0-4.0 X 10^3 Monocytes # (Auto) 0.7 0.0-1.0 X 10^3 Eosinophils # (Auto) 0.3 0.0-0.3 10^3/uL Basophils # (Auto) 0.0 0.0-0.1 10^3/uL Immature Granulocyte # (Auto) 0.0 0.0-0.1 10^3/uL Sodium Level 140 135-145 MMOL/L Potassium Level 4.0 3.6-5.0 MMOL/L Chloride Level 104 98-107 MMOL/L Carbon Dioxide Level 26 21-32 MMOL/L Anion Gap 10 5-14 MMOL/L Blood Urea Nitrogen 21 H 7-18 MG/DL Creatinine 1.35 H 0.60-1.30 MG/DL Estimat Glomerular Filtration Rate 51 BUN/Creatinine Ratio 16 Glucose Level 82 70-105 MG/DL Calcium Level 8.4 L 8.5-10.1 MG/DL My Orders Orders - SON VALDES MD Cbc With Automated Diff (06/22/20 15:46) Basic Metabolic Panel (06/22/20 15:46) Ua Culture If Indicated (06/22/20 15:46) Ct Abdomen/Pelvis Wo (06/22/20 15:46) Urine Culture (06/22/20 15:30) Vital Signs/I&O 06/22/20 15:20 Temp 36.0 Pulse 68 Resp 18 B/P (MAP) 138/72 (94) Pulse Ox 90 O2 Delivery Room Air Capillary Refill : Less Than 3 Seconds Blood Pressure Mean: 94 Progress Note : Time: 16:[address] findings with the patient, large fleshy bladder mass noted on CT. Patient again has follow-up with Dr. Wills his urologist at [facility] in [place]. He states that he will call him in the morning. I did offer the patient a [place] catheter as he is at high risk for urinary retention secondary to clotting however the patient wishes to not have that placed at this time. I counseled him on drinking plenty of fluids. He should not have any other problems if he is drinking lots of water but I did tell him that if he should have a sudden urge to urinate and not be able to go then he needs to come back to the emergency room for catheter placement. Both the patient and his who is at the bedside verbalized understanding of the plan of care. All questions are sought and answered. Patient is stable for discharge. Diagnostic Imaging Diagonstic Imaging: CT Plain Films/CT/US/NM/MRI: abdomen, pelvis Comments [facility] [place], [place] NAME: JEROD LLOYD Lili [facility] REC#: [id number] PT STATUS: REG ER : 1945 PHYSICIAN: SON VALDES MD ADMIT DATE: 06/22/20/ER Draft Date of Exam:06/22/20 CT ABDOMEN/PELVIS WO CT ABDOMEN/PELVIS WO TECHNIQUE: Unenhanced CT imaging of the abdomen and pelvis was performed. 2-D reformats are created and submitted for interpretation. Automatic exposure controls were utilized to optimize patient dose. INDICATION: Gross painless hematuria. COMPARISON: None available. FINDINGS: Evaluation of the abdominal viscera is mildly limited without contrast. Lower chest: Subpleural fine reticulations with some scattered areas of honeycombing are indicative of pulmonary fibrosis. Calcified pleural plaque in the right lower hemithorax base may be due to prior asbestos exposure. Peritoneum: No free intraperitoneal air or fluid. Liver and biliary system: Unenhanced liver is normal. The gallbladder is normal. No biliary duct dilation. Spleen and Pancreas: Spleen is normal. Unenhanced pancreas is grossly normal. Adrenals: Normal. tract: Nonobstructing 6 mm stone in the lower pole of left kidney. No right renal stone. Partially pedunculated soft tissue mass in the left posterior aspect of the urinary bladder measures 2.1 x 1.8 cm and most compatible with a primary urinary bladder neoplasm. No obstructive uropathy. GI tract: Stomach is partially filled with fluid and there is no wall thickening. No bowel obstruction. No pericolonic inflammatory changes. Normal appendix. Vasculature and Lymph nodes: Mild ectasia of the infrarenal abdominal aorta measuring up to 2.6 cm. No abdominal or pelvic lymphadenopathy. Musculoskeletal: No concerning osseous lesion. Prominent Schmorl's node within the inferior endplate of L3. IMPRESSION: 1. Soft tissue mass in the left allan-aspect at the base of the urinary bladder is most compatible with a primary bladder cancer. No features of regional metastases. 2. Nonobstructing 6 mm stone in the lower pole of the left kidney. 3. Probable prior asbestos exposure with calcified pleural plaque along the right hemidiaphragm and pulmonary fibrosis. Dictated on workstation # [id number] Dict: 06/22/20 1616 Trans: 06/22/20 1624 [facility] [id number] Interpreted by: HYACINTH MCDONOUGH MD Electronically signed by: Departure Impression Primary Impression: Gross hematuria Additional Impression: Bladder tumor Disposition: 01 HOME, SELF-CARE Condition: Stable Departure-Patient Inst. Decision time for Depature: 16:53 Referrals: PARISH VALDEZ DO (PCP/Family) Primary Care Physician Patient Instructions: Blood in the Urine (Hematuria) in Adults Add. Discharge Instructions: Please drink lots of water in order to stay well-hydrated and to keep your urine flowing. Please call your urologist, Dr. Wills, first thing in the morning for a follow- up appointment regarding this bladder mass. I have sent your CT scan electronically to [place] for Dr. Wills to be able to review. Return to the emergency room if you have any abdominal pain, difficulty urinating or any other emergent concerning symptoms. SON VALDES MD Jun 22, 2020 16:04
[2020-06-22 16:19] LABS: CALCIUM 8.4 MG/DL (8.5-10.1); CREATININE SERUM 1.35 MG/DL (0.60-1.30)
--- NOTE | 2020-06-22 16:25 | Diagnostic Imaging Report ---
CT ABDOMEN/PELVIS WO TECHNIQUE: Unenhanced CT imaging of the abdomen and pelvis was performed. 2-D reformats are created and submitted for interpretation. Automatic exposure controls were utilized to optimize patient dose. INDICATION: Gross painless hematuria. COMPARISON: None available. FINDINGS: Evaluation of the abdominal viscera is mildly limited without contrast. Lower chest: Subpleural fine reticulations with some scattered areas of honeycombing are indicative of pulmonary fibrosis. Calcified pleural plaque in the right lower hemithorax base may be due to prior asbestos exposure. Peritoneum: No free intraperitoneal air or fluid. Liver and biliary system: Unenhanced liver is normal. The gallbladder is normal. No biliary duct dilation. Spleen and Pancreas: Spleen is normal. Unenhanced pancreas is grossly normal. Adrenals: Normal. tract: Nonobstructing 6 mm stone in the lower pole of left kidney. No right renal stone. Partially pedunculated soft tissue mass in the left posterior aspect of the urinary bladder measures 2.1 x 1.8 cm and most compatible with a primary urinary bladder neoplasm. No obstructive uropathy. GI tract: Stomach is partially filled with fluid and there is no wall thickening. No bowel obstruction. No pericolonic inflammatory changes. Normal appendix. Vasculature and Lymph nodes: Mild ectasia of the infrarenal abdominal aorta measuring up to 2.6 cm. No abdominal or pelvic lymphadenopathy. Musculoskeletal: No concerning osseous lesion. Prominent Schmorl's node within the inferior endplate of L3. IMPRESSION: 1. Soft tissue mass in the left allan-aspect at the base of the urinary bladder is most compatible with a primary bladder cancer. No features of regional metastases. 2. Nonobstructing 6 mm stone in the lower pole of the left kidney. 3. Probable prior asbestos exposure with calcified pleural plaque along the right hemidiaphragm and pulmonary fibrosis. Dictated by: Dictated on workstation # [id number]
[2020-06-22 16:59] VITALS: BP 128/72
== END 2020-06-22 16:59 | disposition home or self-care (01) ==
LOC: EDUNIT# 15:09 → ER 15:12
DX: D30.3 Benign neoplasm of bladder (principal); E78.00 Pure hypercholesterolemia, unspecified; F32.9 Major depressive disorder, single episode, unspecified; J44.9 Chronic obstructive pulmonary disease, unspecified; F17.210 Nicotine dependence, cigarettes, uncomplicated; Z86.718 Personal history of other venous thrombosis and embolism; Z79.82 Long term (current) use of aspirin; Z79.02 Long term (current) use of antithrombotics/antiplatelets
CPT/HCPCS: 36415; 74176; 80048; 81000; 85025; 87088

== ENCOUNTER → 2020-09-06 | Outpatient (CLI) | payer MEDICARE ==
--- NOTE | 2020-09-06 10:37 | Diagnostic Imaging Report ---
CT Lung Screening INDICATION: Screening for lung cancer, 59 pack year history of smoking. TECHNIQUE: Noncontrast, low-dose CT imaging performed according to the lung cancer screening protocol. Auto Exposure Controls were utilize during the CT exam to meet ALARA standards for radiation dose reduction. COMPARISON: 09/04/2019 and 06/17/2018 FINDINGS: No significant adenopathy within the chest. Scattered vascular calcifications, including within the coronary arteries without aneurysmal dilatation of the thoracic aorta. No pericardial effusion. No pleural effusion. Thin calcified pleural plaques are again noted bilaterally. The trachea is patent. No pneumothorax. Stable 0.6 cm solid pleural-based left upper lobe pulmonary nodule is again identified and unchanged since 2019. No new focal pulmonary nodule. Moderate background emphysematous changes are present, particularly centrilobular in nature. Moderate background interstitial lung disease is again noted to include subpleural fibrosis and mild honeycombing within the lung bases. No pneumothorax. The minimally visualized upper abdomen is unremarkable. Scattered osseous degenerative changes without acute osseous abnormality. IMPRESSION: Stable examination demonstrating moderate background fibroemphysematous changes without actionable pulmonary nodule or mass. LUNG-RADS CATEGORY:2S: Benign appearance or behavior. MODIFIER:S: Moderate background fibroemphysematous changes Follow-up: Continued annual low-dose CT of the chest in 12 months. Dictated by: Dictated on workstation # [id number]
== END ==
LOC: RAD 09:15
PROVIDERS: ATTEND Family Medicine
DX: Z12.2 Encounter for screening for malignant neoplasm of respiratory organs (principal); J43.9 Emphysema, unspecified; F17.210 Nicotine dependence, cigarettes, uncomplicated
CPT/HCPCS: 71271

== ENCOUNTER 2020-11-23 09:31 | Inpatient (IN) | payer MEDICARE ==
[~2020-11-23] VITALS: Ht 177 cm; Wt 69.0 kg
[2020-11-23] MEDS ORDERED: NS IV 1000 ML 1,000 ML ONE (10:02)
[2020-11-23 10:10] LABS: BASOPHILS % (AUTO) 0 % (0-10); EOSINOPHILS % (AUTO) 0 % (0-10); HEMATOCRIT 52 % (40-54); HEMOGLOBIN 16.6 g/dL (13.3-17.7); LYMPHOCYTES # (AUTO) 0.9 10^3/uL (1.0-4.0); LYMPHOCYTES % (AUTO) 5 % (12-44); MEAN CORPUSCULAR HEMOGLOBIN 34 pg (25-34); MEAN CORPUSCULAR HGB CONC 32 g/dL (32-36); MEAN CORPUSCULAR VOLUME 106 fL (80-99); MEAN PLATELET VOLUME 9.8 fL (9.0-12.2); MONOCYTES # (AUTO) 1.1 10^3/uL (0.0-1.0); MONOCYTES % (AUTO) 6 % (0-12); NEUTROPHILS # (AUTO) 15.8 10^3/uL (1.8-7.8); NEUTROPHILS % (AUTO) 88 % (42-75); PLATELET COUNT 173 10^3/uL (130-400); WHITE BLOOD COUNT 17.9 10^3/uL (4.3-11.0)
[2020-11-23 10:24] LABS: ALBUMIN 3.7 GM/DL (3.2-4.5); POTASSIUM 4.2 MMOL/L (3.6-5.0)
[2020-11-23 10:26] LABS: FIBRIN DEGRADATION PRODUCTS 1.42 UG/ML (0.00-0.49); PROTHROMBIN TIME PATIENT 14.1 SEC (12.2-14.7); TOTAL PROTEIN 7.5 GM/DL (6.4-8.2)
[2020-11-23 10:28] LABS: BILIRUBIN,TOTAL 1.1 MG/DL (0.1-1.0)
[2020-11-23 10:30] LABS: CREATININE SERUM 1.31 MG/DL (0.60-1.30); LYMPHOCYTES % (MANUAL) 6 %; MONOCYTES % (MANUAL) 5 %; NEUTROPHILS % (MANUAL) 84 %; RBC MORPH NORMAL; REACTIVE LYMPHOCYTES 5 %
--- NOTE | 2020-11-23 10:44 | Diagnostic Imaging Report ---
INDICATION: Weakness, cough, fatigue, and sepsis. TECHNIQUE: Single view chest at 10:38 AM. CORRELATION STUDY: 08/15/2011. FINDINGS: Heart size is within normal limits. Fullness of the bilateral hilar structures may reflect a component central edema versus infiltrate, right greater than left. Diffusely prominent interstitial markings again demonstrated and overall appear increased. Symptoms likely attributed to edema. More focal opacity at the right mid and lower lung field, however, does suggest asymmetric pulmonary edema versus infiltrate. IMPRESSION: Heart size is stable and within normal limits. There does appear to be bilateral perihilar opacities which may be reflective of edema versus infiltrate, right greater than left. Additional prominent interstitial markings and superimposed opacity at the right lung base may reflect additional interstitial and pulmonary edema. Superimposed pneumonia, however, is suspected at the right lung base. Followup imaging recommended. Dictated by: Dictated on workstation # [id number]
[2020-11-23] MEDS ORDERED: CEFEPIME INJECTION 2,000 MG in WATER (STERILE) FOR INJECTION 20 ML IV ONE (11:00)
--- NOTE | 2020-11-23 11:18 | ED General ---
General Chief Complaint: General Problems/Pain Stated Complaint: WEAKNESS Nursing Triage Note: PT CO OF WEAKNESS WHEN WALKING FOR 2 DAYS, INCREASE IN COUGH PAST 2 DAYS, DENIES FEVERS, DIARRHEA, STATES DOES HAVE CHANGE IN TASTE. PT STATES WEARS O2 AT NIGHT 2L. PT CO OF EXTREME FATIGUE. PT HAS BLUEISH COLORED NAIL BEDS SAT 65% ON ROOM AIR UPON ARRIVAL TO ROOM Source of Information: Patient Exam Limitations: No Limitations History of Present Illness Date Seen by Provider: Nov 23, 2020 Time Seen by Provider: 09:46 Initial Comments 75-year-old gentleman presents to the emergency room with feelings of fatigue, lightheadedness, and increased cough over the past couple of days. He is cyanotic for nursing staff on triage and is noted to have an oxygen saturation of 65% on room air. He normally only wears oxygen at 2 L/min at night. He denies any chest pain, fever, vomiting, or diarrhea. He has had a loss of appetite with a little change in taste. He is fully vaccinated against COVID- 19. Allergies and Home Medications Allergies Coded Allergies: No Known Drug Allergies (Unverified , 01/07/12) Home Medications Albuterol Sulfate 1 Puff Puff, 2 PUFF INH Q4H 1 PUFF = 90 MCG Prescribed by: PARISH BECERRA on 03/10/20 1256 Aspirin 81 Mg Tablet.dr, 162 MG PO DAILY, (Reported) TAKES 2 (81MG) TABS Calcium Carbonate 500 Mg Tablet, 500 MG PO DAILY, (Reported) Docusate Sodium 100 Mg Tablet, 100 MG PO DAILY, (Reported) Escitalopram Oxalate 20 Mg Tablet, 10 MG PO DAILY, (Reported) TAKES (20MG) TAB Simvastatin 80 Mg Tablet, 40 MG PO HS, (Reported) TAKES (80MG) TAB Patient Home Medication List Home Medication List Reviewed: Yes Review of Systems Review of Systems Constitutional: see HPI EENTM: no symptoms reported Respiratory: see HPI Cardiovascular: no symptoms reported Gastrointestinal: no symptoms reported Genitourinary: no symptoms reported Musculoskeletal: no symptoms reported Skin: no symptoms reported Psychiatric/Neurological: See HPI Hematologic/Lymphatic: No Symptoms Reported Immunological/Allergic: no symptoms reported Past Ltlinxe-Jciuuo-Vzebfm Hx Patient Social History Tobacco Use?: Yes Tobacco type used: Cigarettes Smoking Status: Current Everyday Smoker Substance use?: No Alcohol Use?: No Pt feels they are or have been: No Immunizations Up To Date Second COVID19 Vaccination Gabriel: JUNE 26 COVID19 Vaccine [employer] Developer: BHARATHI Past Medical History Surgery/Hospitalization HX: BLADDER TUMOR REMOVAL Surgeries: Yes (CTR, BILAT CEA, LEFT SHOULDER SCOPE, PROSTATE SURGERY, FINGER REATTACHMENT) Respiratory: Yes COPD (Uses supplemental oxygen at night) Cardiac: Yes High Cholesterol Neurological: No (CURRENTLY HAS BRAIN ANEURYSM BEING CHECKED) Genitourinary: No Gastrointestinal: No Musculoskeletal: No Chronic Back Pain Endocrine: No Cancer: No Psychosocial: Yes Depression Integumentary: No Blood Disorders: Yes (THROMBOSED VEIN IN LEG) Family Medical History Reviewed Nursing Family Hx Cardiovascular disease G8 BROTHER Neoplasm 19 FATHER (protaste cancer) Physical Exam-Suspected Sepsis Physical Exam Vital Signs Vital Signs - First Documented 11/23/20 09:37 Temp 37.2 Pulse 77 Resp 17 B/P (MAP) 115/56 (75) Pulse Ox 95 O2 Delivery OxyMask O2 Flow Rate 8.00 Capillary Refill : Less Than 3 Seconds Blood Pressure Mean: 75 Height, Weight, BMI Height: 5'10.00" Weight: 165lbs. 4.0oz. 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 Norm as Tested Skin: normal color, warm/dry Focused Exam Lactate Level 11/23/20 10:30: Lactic Acid Level 0.92 Lactic Acid Level Progress/Results/Core Measures Suspected Sepsis SIRS Temperature: Pulse: 77 Respiratory Rate: 17 Laboratory Tests 11/23/20 09:50: White Blood Count 17.9H Blood Pressure 115 /56 Mean: 75 11/23/20 10:30: Lactic Acid Level 0.92 Laboratory Tests 11/23/20 09:50: Creatinine 1.31H, INR Comment 1.0, Platelet Count 173, Total Bilirubin 1.1H Results/Orders Lab Results Laboratory Tests Test 11/23/20 09:42 11/23/20 09:50 11/23/20 10:30 11/23/20 13:55 Range/Units Influenza Type A (RT-PCR) Not Detected Not Detecte Influenza Type B (RT-PCR) Not Detected Not Detecte SARS-CoV-2 RNA (RT-PCR) Not Detected Not Detecte White Blood Count 17.9 H 4.3-11.0 10^3/uL Red Blood Count 4.86 4.30-5.52 10^6/uL Hemoglobin 16.6 13.3-17.7 g/dL Hematocrit 52 40-54 % Mean Corpuscular Volume 106 H 80-99 fL Mean Corpuscular Hemoglobin 34 25-34 pg Mean Corpuscular Hemoglobin Concent 32 32-36 g/dL Red Cell Distribution Width 13.6 10.0-14.5 % Platelet Count 173 130-400 10^3/uL Mean Platelet Volume 9.8 9.0-12.2 fL Immature Granulocyte % (Auto) 1 % Neutrophils (%) (Auto) 88 H 42-75 % Lymphocytes (%) (Auto) 5 L 12-44 % Monocytes (%) (Auto) 6 0-12 % Eosinophils (%) (Auto) 0 0-10 % Basophils (%) (Auto) 0 0-10 % Neutrophils # (Auto) 15.8 H 1.8-7.8 10^3/uL Lymphocytes # (Auto) 0.9 L 1.0-4.0 10^3/uL Monocytes # (Auto) 1.1 H 0.0-1.0 10^3/uL Eosinophils # (Auto) 0.0 0.0-0.3 10^3/uL Basophils # (Auto) 0.0 0.0-0.1 10^3/uL Immature Granulocyte # (Auto) 0.1 0.0-0.1 10^3/uL Neutrophils % (Manual) 84 % Lymphocytes % (Manual) 6 % Monocytes % (Manual) 5 % Reactive Lymphocytes 5 % Blood Morphology Comment NORMAL Prothrombin Time 14.1 12.2-14.7 SEC INR Comment 1.0 0.8-1.4 Activated Partial Thromboplast Time 35 24-35 SEC D-Dimer 1.42 H 0.00-0.49 UG/ML Sodium Level 134 L 135-145 MMOL/L Potassium Level 4.2 3.6-5.0 MMOL/L Chloride Level 101 98-107 MMOL/L Carbon Dioxide Level 23 21-32 MMOL/L Anion Gap 10 5-14 MMOL/L Blood Urea Nitrogen 21 H 7-18 MG/DL Creatinine 1.31 H 0.60-1.30 MG/DL Estimat Glomerular Filtration Rate 53 BUN/Creatinine Ratio 16 Glucose Level 107 H 70-105 MG/DL Calcium Level 9.0 8.5-10.1 MG/DL Corrected Calcium 9.2 8.5-10.1 MG/DL Total Bilirubin 1.1 H 0.1-1.0 MG/DL Aspartate Amino Transf (AST/SGOT) 17 5-34 U/L Alanine Aminotransferase (ALT/SGPT) 9 0-55 U/L Alkaline Phosphatase 74 40-136 U/L C-Reactive Protein High Sensitivity 14.14 H 0.00-0.50 MG/DL B-Type Natriuretic Peptide 87.4 <100.0 PG/ML Total Protein 7.5 6.4-8.2 GM/DL Albumin 3.7 3.2-4.5 GM/DL Procalcitonin 0.13 H <0.10 NG/ML Lactic Acid Level 0.92 0.50-2.00 MMOL/L Urine Color YELLOW Urine Clarity CLEAR Urine pH 6.0 5-9 Urine Specific [place] 1.010 L 1.016-1.022 Urine Protein NEGATIVE NEGATIVE Urine Glucose (UA) NEGATIVE NEGATIVE Urine Ketones NEGATIVE NEGATIVE Urine Nitrite NEGATIVE NEGATIVE Urine Bilirubin NEGATIVE NEGATIVE Urine Urobilinogen 1.0 < = 1.0 MG/DL Urine Leukocyte Esterase 2+ H NEGATIVE Urine RBC (Auto) 1+ H NEGATIVE Urine RBC NONE /HPF Urine WBC 50-100 H /HPF Urine Squamous Epithelial Cells RARE /HPF Urine Crystals NONE /LPF Urine Bacteria TRACE /HPF Urine Casts NONE /LPF Urine Mucus NEGATIVE /LPF Urine Culture Indicated CULTURE PENDING My Orders Orders - MODESTA LUTZ MD Fibrin Degradation Products (11/23/20 09:47) Procalcitonin (Pct) (11/23/20 09:47) Hs C Reactive Protein (11/23/20 09:47) Covid 19 Inhouse Test (11/23/20 09:47) Influenza A And B By Pcr (11/23/20 09:47) Cbc With Automated Diff (11/23/20 09:47) Comprehensive Metabolic Panel (11/23/20 09:47) Blood Culture (11/23/20 09:47) Sputum Culture (11/23/20 09:47) Urinalysis (11/23/20:47) Urine Culture (11/23/20 09:47) Protime With Inr (11/23/20 09:47) Partial Thromboplastin Time (11/23/20 09:47) Chest 1 View, Ap/Pa Only (11/23/20 09:47) Ed Iv/Invasive Line Start (11/23/20 09:47) Ed Iv/Invasive Line Start (11/23/20 09:47) Vital Signs Adult Sepsis Patie Q15M (11/23/20 09:47) O2 (11/23/20 09:47) Remove Rings In Anticipation O (11/23/20 09:47) Lactic Acid Analyzer (11/23/20 09:47) Ns Iv 1000 Ml (Sodium Chloride 0.9%) (11/23/20 10:02) Manual Differential (11/23/20 09:50) BNP (11/23/20 10:57) Ct Angio Chest W (11/23/20 10:57) Cefepime Injection (Maxipime Injection) (11/23/20 11:00) Lactated Ringers (Lr 1000 Ml Iv Solution (11/23/20 13:30) Medications Given in ED Current Medications Medications Dose Ordered Sig/Berenice Route Start Time Stop Time Status Last Admin Dose Admin Cefepime HCl 2000 mg/Sterile Water 20 ml @ 240 mls/hr ONCE ONCE IV 11/23/20 11:00 11/23/20 11:04 DC 11/23/20 11:39 240 MLS/HR Iohexol 100 ml ONCE ONCE IV 11/23/20 11:30 11/23/20 11:31 DC 11/23/20 12:10 64 ML Lactated Ringer's 1,000 ml @ 0 mls/hr Q0M ONCE IV 11/23/20 13:30 11/23/20 13:31 DC 11/23/20 13:36 1,000 MLS/HR Sodium Chloride 100 ml ONCE ONCE IV 11/23/20 11:30 11/23/20 11:31 DC 11/23/20 12:10 70 ML Sodium Chloride 1,000 ml @ ud STK-MED ONCE .ROUTE 11/23/20 10:02 11/23/20 10:05 DC 11/23/20 10:02 1,000 MLS/HR Vital Signs/I&O 11/23/20 11/23/20 11/23/20 11/23/20 09:37 09:37 13:48 14:09 Temp 37.2 36.8 Pulse 77 72 64 Resp 17 18 20 B/P (MAP) 115/56 (75) 122/58 117/56 (76) Pulse Ox 95 97 95 95 O2 Delivery OxyMask OxyMask Nasal Cannula O2 Flow Rate 8.00 8.00 3.00 11/23/20 11/23/20 11/23/20 11/23/20 14:25 15:57 16:21 16:38 Temp 36.8 36.4 Pulse 64 73 68 Resp 20 B/P (MAP) 113/56 (75) Pulse Ox 95 95 93 O2 Delivery Nasal Cannula Nasal Cannula O2 Flow Rate 3.00 3.00 11/23/20 11/23/20 11/23/20 19:00 19:24 20:20 Temp 36.4 Pulse 66 73 Resp 20 B/P (MAP) 127/68 (87) Pulse Ox 93 92 O2 Delivery Nasal Cannula Nasal Cannula O2 Flow Rate 3.00 4.00 Capillary Refill : Less Than 3 Seconds Blood Pressure Mean: 75 Progress Note #1: Time: 11:21 Progress Note Patient's oxygen saturation was resuscitated with nasal cannula support. Septic work-up is underway. Covid and influenza screens were negative. There does appear to be infiltrate on the chest x-ray and D-dimer is elevated. We will evaluate these findings further with CT angiogram of the chest. Patient was also hypotensive with systolic blood pressure as low as 85. This was resuscitated with a liter of IV normal saline. Hypoxia and chest x-ray findings are presumed to represent pneumonia. Cefepime has been ordered for initial antibiotic therapy. Progress Note #2: Time: 13:42 Progress Note Covid screen was negative. CT angiogram showed no evidence of pulmonary embolus. Pneumonia was identified. Patient remained stable. Blood pressure rebounded well with 1 L of IV fluid. We will give an additional 1500 mL in boluses to equal a 30 mL/kg large volume bolus as patient does meet severe sepsis criteria with the hypoxia associated with this pneumonia. I discussed CODE STATUS with the patient and he wishes to remain a full CODE STATUS. Because of his COPD, we will continue with cefepime as the antibiotic of choice for structural lung disease. Diagnostic Imaging Diagonstic Imaging: Xray Plain Films/CT/US/NM/MRI: chest Comments Chest x-ray viewed by me and report reviewed. See report below: NAME: JEROD LLOYD [facility] REC#: [id number] PT STATUS: REG ER : 1945 PHYSICIAN: MODESTA LUTZ MD ADMIT DATE: 11/23/20/ER Draft Date of Exam:11/23/20 CHEST 1 VIEW, AP/PA ONLY INDICATION: Weakness, cough, fatigue, and sepsis. TECHNIQUE: Single view chest at 10:38 AM. CORRELATION STUDY: 08/15/2011. FINDINGS: Heart size is within normal limits. Fullness of the bilateral hilar structures may reflect a component central edema versus infiltrate, right greater than left. Diffusely prominent interstitial markings again demonstrated and overall appear increased. Symptoms likely attributed to edema. More focal opacity at the right mid and lower lung field, however, does suggest asymmetric pulmonary edema versus infiltrate. IMPRESSION: Heart size is stable and within normal limits. There do appear to be bilateral perihilar opacities which may be reflective of edema versus infiltrate, right greater than left. Additional prominent interstitial markings and superimposed opacity at the right lung base may reflect additional interstitial and pulmonary edema. Superimposed pneumonia, however, is suspected at the right lung base. Followup imaging recommended. Dictated on workstation # [id number] Dict: 11/23/20 1040 Trans: 11/23/20 1043 [id number] Interpreted by: NICOLLE MCINTYRE DO Diagonstic Imaging: CT Plain Films/CT/US/NM/MRI: chest Comments CT angiogram chest viewed by me and report reviewed. See report below: NAME: JEROD LLOYD [facility] REC#: [id number] PT STATUS: REG ER : 1945 PHYSICIAN: MODESTA LUTZ MD ADMIT DATE: 11/23/20/ER Draft Date of Exam:11/23/20 CT ANGIO CHEST W PROCEDURE: CT angiography of the chest with contrast. TECHNIQUE: Multiple contiguous axial images were obtained through the chest after uneventful bolus administration of intravenous contrast. 3D reconstructed CTA MIP acquisitions were also performed. Auto Exposure Controls were utilized during the CT exam to meet ALARA standards for radiation dose reduction. INDICATION: 75-year-old male, weakness x2 days, cough. History of tobacco use. CORRELATION: CT chest screening 09/06/2020 FINDINGS: Heart size upper limits normal but without disproportionate right heart strain. Scattered coronary artery calcification. Thoracic aorta mild wall calcification. Normal three-vessel branching pattern the aortic arch with prominent calcification at the origin. Likely mild ectasia visualized portion of the abdominal aorta. There is no pulmonary artery filling defect to suggest pulmonary embolism. Unchanged a few mildly prominent mediastinal lymph nodes. Prominent bilateral hilar lymphadenopathy right greater than left. 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 There is slightly more focal consolidation in the peripheral, subpleural distribution of both lung bases right greater than left. On the right, slightly more rounded measuring 28 x 15 mm. High density, plaque-like configuration along the right diaphragm, stable. Nonobstructing left renal stone in the visualized upper abdomen. Small hiatal hernia. Rather prominent bridging bulky osteophytes large portion thoracic spine. No acute bony abnormality. IMPRESSION: 1. No CTA evidence for pulmonary embolism. 2. Severe emphysematous change about the lung parenchyma. Increased consolidated appearance in the subpleural region of both lower lobes right greater than left. There is probable multilobe pneumonia. Given distribution, aspiration not excluded. Clinical correlation recommended. 3. Mildly prominent mediastinal and hilar lymphadenopathy. May very well be reactive. 4. Given findings, short-term follow-up radiographic follow-up evaluation is recommended. Dictated on workstation # [id number] Dict: 11/23/20 1228 Trans: 11/23/20 1239 [facility] [id number] Interpreted by: NICOLLE MCINTYRE DO Departure Communication (Admissions) Time/Spoke to Admitting Phy: 12:41 Dr. Becerra Impression Primary Impression: Severe sepsis Additional Impressions: Pneumonia Qualified Codes: J18.9 - Pneumonia, unspecified organism Hypoxia Disposition: ADMITTED INPATIENT Condition: Improved Admissions Decision to Admit Reason: Admit from ER (General) Decision to Admit/Date: Nov 23, 2020 Time/Decision to Admit Time: 09:46 Departure-Patient Inst. Referrals: PARISH BECERRA DO (PCP/Family) Primary Care Physician MODESTA LUTZ MD Nov 23, 2020 11:18
[2020-11-23] MEDS ORDERED: IOHEXOL 350 MG/ML 100 ML (OMNIPAQUE 350) VIAL IV ONE (11:30)
[2020-11-23] MEDS ORDERED: NS 100 ML (IVPB) BAG IV ONE (11:30)
[2020-11-23] MEDS ORDERED: HOLD METFORMIN - RECEIVED CONTRAST 20 ML VIAL IV SCH (11:30)
[2020-11-23] MEDS ORDERED: CATHETER FLUSH 10 ML SYR IV PRN ×2 (11:30→15:00)
--- NOTE | 2020-11-23 12:39 | Diagnostic Imaging Report ---
PROCEDURE: CT angiography of the chest with contrast. TECHNIQUE: Multiple contiguous axial images were obtained through the chest after uneventful bolus administration of intravenous contrast. 3D reconstructed CTA MIP acquisitions were also performed. Auto Exposure Controls were utilized during the CT exam to meet ALARA standards for radiation dose reduction. INDICATION: 75-year-old male, weakness x2 days, cough. History of tobacco use. CORRELATION: CT chest screening 09/06/2020 FINDINGS: Heart size upper limits normal but without disproportionate right heart strain. Scattered coronary artery calcification. Thoracic aorta mild wall calcification. Normal three-vessel branching pattern the aortic arch with prominent calcification at the origin. Likely mild ectasia visualized portion of the abdominal aorta. There is no pulmonary artery filling defect to suggest pulmonary embolism. Unchanged a few mildly prominent mediastinal lymph nodes. Prominent bilateral hilar lymphadenopathy right greater than left. 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 There is slightly more focal consolidation in the peripheral, subpleural distribution of both lung bases right greater than left. On the right, slightly more rounded measuring 28 x 15 mm. High density, plaque-like configuration along the right diaphragm, stable. Nonobstructing left renal stone in the visualized upper abdomen. Small hiatal hernia. Rather prominent bridging bulky osteophytes large portion thoracic spine. No acute bony abnormality. IMPRESSION: 1. No CTA evidence for pulmonary embolism. 2. Severe emphysematous change about the lung parenchyma. Increased consolidated appearance in the subpleural region of both lower lobes right greater than left. There is probable multilobe pneumonia. Given distribution, aspiration not excluded. Clinical correlation recommended. 3. Mildly prominent mediastinal and hilar lymphadenopathy. May very well be reactive. 4. Given findings, short-term follow-up radiographic follow-up evaluation is recommended. Dictated by: Dictated on workstation # [id number]
[2020-11-23] MEDS ORDERED: LACTATED RINGERS 1,000 ML IV ONE (13:30)
[2020-11-23 14:04] LABS: BILIRUBIN,URINE NEGATIVE (NEGATIVE); CLARITY,URINE CLEAR; COLOR,URINE YELLOW; GLUCOSE, URINE (UA) NEGATIVE (NEGATIVE); KETONES,URINE NEGATIVE (NEGATIVE); LEUKOCYTE ESTERASE ,URINE 2+ (NEGATIVE); NITRITE,URINE NEGATIVE (NEGATIVE); PROTEIN,URINE NEGATIVE (NEGATIVE)
[2020-11-23 14:09] VITALS: BP 117/56
[2020-11-23 14:19] LABS: BACTERIA,URINE TRACE /HPF; SQUAMOUS EPITHELIAL CELL,UR RARE /HPF; WBC,URINE 50-100 /HPF
[2020-11-23] MEDS ORDERED: NS IV 500 ML 500 ML ONE (14:42)
[2020-11-23] MEDS ORDERED: ACETAMINOPHEN 500 MG TAB (TYLENOL) PO PRN (15:00)
[2020-11-23] MEDS ORDERED: ONDANSETRON 4 MG/2 ML (SDV) Z0FRAN IV PRN (15:00)
[2020-11-23] MEDS ORDERED: NS IV 500 ML 500 ML IV ONE (15:00)
[2020-11-23 15:57] VITALS: BP 117/56
[2020-11-23] MEDS ORDERED: RT-ALBUTEROL/IPRATROPIUM 3 ML (DUONEB) VIAL INH PRN (16:00)
[2020-11-23] MEDS: LACTATED RINGERS 1,000 ML IV SCH ×2 (16:13→20:46)
[2020-11-23 16:21] VITALS: BP 113/56
[2020-11-23 19:24] VITALS: BP 127/68
--- NOTE | 2020-11-23 19:52 | History & Physical ---
History of Present Illness History of Present Illness Reason for visit/HPI This is a 75 year old male with a history of COPD and ongoing tobacco abuse who was brought to the emergency room due to worsening fatigue, cough and shortness of air. He was hypoxic on admission with an oxygen saturation of 65%. His rapid COVID was negative. A CT angiogram of the chest showed no PE but did confirm multilobular pneumonia. He was hypotensive and his WBC count was 17,900 with an elevated CRP and procalcitonin. He will be admitted for sepsis and pneumonia. Date of Admission Nov 23, 2020 at 13:37 Date Seen by a Provider: Nov 23, 2020 Time Seen by a Provider: 19:48 I consulted on this patient on 11/23/20 19:45 Attending Physician Jenna Becerra DO Admitting Physician Jenna Becerra DO Consult Allergies and Home Medications Allergies Coded Allergies: No Known Drug Allergies (Unverified , 01/07/12) Home Medications Albuterol Sulfate 1 Puff Puff, 2 PUFF INH Q4H 1 PUFF = 90 MCG Prescribed by: JENNA BECERRA on 03/10/20 1256 Aspirin 81 Mg Tablet.dr, 162 MG PO DAILY, (Reported) TAKES 2 (81MG) TABS Calcium Carbonate 500 Mg Tablet, 500 MG PO DAILY, (Reported) Docusate Sodium 100 Mg Tablet, 100 MG PO DAILY, (Reported) Escitalopram Oxalate 20 Mg Tablet, 10 MG PO DAILY, (Reported) TAKES (20MG) TAB Simvastatin 80 Mg Tablet, 40 MG PO HS, (Reported) TAKES (80MG) TAB Patient Home Medication List Home Medication List Reviewed: Yes Past Bharjof-Uswzvw-Ujmews Hx Patient Social History Marrital Status: Tobacco Use?: Yes Tobacco type used: Cigarettes Smoking Status: Current Everyday Smoker Substance use?: No Alcohol Use?: No Pt feels they are or have been: No Immunizations Up To Date Date of Influenza Vaccine: Jan 07, 2020 First/Initial COVID19 Vaccinat: JUNE 2020 Second COVID19 Vaccination Gabriel: JUNE 2020 Tetanus Booster (TDap): More Than 5 Years Date of Pneumonia Vaccine: Apr 08, 2008 Current Status Advance Directives: Yes Advance Directive Location: Home Communicates: Verbally Primary Language: Greenlandic Preferred Spoken Language: Greenlandic Is interpretation needed?: No Sensory deficits: Vision impairment Implanted or Applied Medical D: None Past Medical History COPD (Uses supplemental oxygen at night) High Cholesterol Chronic Back Pain Depression Blood Disorders: Yes (THROMBOSED VEIN IN LEG) Family Medical History Reviewed Nursing Family Hx Cardiovascular disease G8 BROTHER Neoplasm 19 FATHER (protaste cancer) Review of Systems Constitutional: malaise, weakness EENTM: No see HPI, No no symptoms reported, No ear discharge, No hearing loss, No ear pain, No blurred vision, No double vision, No eye pain, No tearing, No vision loss, No dental problems, No hoarseness, No mouth pain, No mouth swelling, No epistaxis, No nose congestion, No nose pain, No throat pain, No throat swelling, No other Respiratory: cough, dyspnea on exertion, short of breath, wheezing Cardiovascular: No no symptoms reported, No see HPI, No chest pain, No edema, No Hx of Intervention, No palpitations, No syncope, No vascular heart diseas, No other Gastrointestinal: loss of appetite Genitourinary: No no symptoms reported, No see HPI, No decreased output, No discharge, No dysuria, No frequency, No hematuria, No hesitancy, No incontinence, No nocturia, No pain, No other Musculoskeletal: muscle weakness Skin: No no symptoms reported, No see HPI, No change in color, No change in hair/nails, No dryness, No hx of skin cancer, No lesions, No lumps, No pruritus, No rash, No other Psychiatric/Neurological: Weakness Physical Exam Vital Signs Vital Signs - First Documented 11/23/20 09:37 Temp 37.2 Pulse 77 Resp 17 B/P (MAP) 115/56 (75) Pulse Ox 95 O2 Delivery OxyMask O2 Flow Rate 8.00 Capillary Refill : Less Than 3 Seconds Height, Weight, BMI Height: 5'10.00" Weight: 165lbs. 4.0oz. 77.917396bc; 22.02 BMI Method: General Appearance: Mild Distress HEENT: Normal ENT Inspection Respiratory: Crackles (worse in right base), Decreased Breath Sounds Cardiovascular: Regular Rate, Rhythm, Systolic Murmur Gastrointestinal: Normal Bowel Sounds, Non Tender, Soft Rectal: Deferred Back: No CVA Tenderness Neurologic/Psychiatric: Alert, Oriented x3 Skin: Warm/Dry Comments Laboratory Tests 11/23/20 09:42: Influenza Type A (RT-PCR) Not Detected, Influenza Type B (RT-PCR) Not Detected, SARS-CoV-2 RNA (RT-PCR) Not Detected 11/23/20 09:50: White Blood Count 17.9H, Red Blood Count 4.86, Hemoglobin 16.6, Hematocrit 52, Mean Corpuscular Volume 106H, Mean Corpuscular Hemoglobin 34, Mean Corpuscular Hemoglobin Concent 32, Red Cell Distribution Width 13.6, Platelet Count 173, Me an Platelet Volume 9.8, Immature Granulocyte % (Auto) 1, Neutrophils (%) (Auto) 88H, Lymphocytes (%) (Auto) 5L, Monocytes (%) (Auto) 6, Eosinophils (%) (Auto) 0, Basophils (%) (Auto) 0, Neutrophils # (Auto) 15.8H, Lymphocytes # (Auto) 0.9L , Monocytes # (Auto) 1.1H, Eosinophils # (Auto) 0.0, Basophils # (Auto) 0.0, Immature Granulocyte # (Auto) 0.1, Neutrophils % (Manual) 84, Lymphocytes % (Manual) 6, Monocytes % (Manual) 5, Reactive Lymphocytes 5, Blood Morphology Comment NORMAL, Prothrombin Time 14.1, INR Comment 1.0, Activated Partial Thromboplast Time 35, D-Dimer 1.42H, Sodium Level 134L, Potassium Level 4.2, C hloride Level 101, Carbon Dioxide Level 23, Anion Gap 10, Blood Urea Nitrogen 21H, Creatinine 1.31H, Estimat Glomerular Filtration Rate 53, BUN/Creatinine Ratio 16, Glucose Level 107H, Calcium Level 9.0, Corrected Calcium 9.2, Total Bilirubin 1.1H, Aspartate Amino Transf (AST/SGOT) 17, Alanine Aminotransferase (ALT/SGPT) 9, Alkaline Phosphatase 74, C-Reactive Protein High Sensitivity 14.14H, B-Type Natriuretic Peptide 87.4, Total Protein 7.5, Albumin 3.7, Procalcitonin 0.13H 11/23/20 10:30: Lactic Acid Level 0.92 11/23/20 13:55: Urine Color YELLOW, Urine Clarity CLEAR, Urine pH 6.0, Urine Specific Viola 1.010L, Urine Protein NEGATIVE, Urine Glucose (UA) NEGATIVE, Urine Ketones NEGATIVE, Urine Nitrite NEGATIVE, Urine Bilirubin NEGATIVE, Urine Urobilinogen 1.0, Urine Leukocyte Esterase 2+H, Urine RBC (Auto) 1+H, Urine RBC NONE, Urine WBC 50-100H, Urine Squamous Epithelial Cells RARE, Urine Crystals NONE, Urine Bacteria TRACE, Urine Casts NONE, Urine Mucus NEGATIVE, Urine Culture Indicated CULTURE PENDING Assessment/Plan Assessment and Plan 1. Severe Sepsis--admit on sepsis protocol with IVFs and IV cefepime and lovenox 2. Acute Multilobular Pneumonia--cefepime, SVNS with albuterol 3. Acute on Chronic Respiratory Failure--on oxygen via NC 4. Chronic/Severe COPD--ongoing tobacco abuse 5. History of TIA--resume aspirin and simvastatin 6. History of Bladder Cancer--on surveillance Admission Diagnosis Admission Status: Inpatient Order (span 2 midnights) Reason for Inpatient Admission: Will need at least 48hrs of IV abx JENNA BECERRA DO Nov 23, 2020 19:52
[2020-11-23] MEDS: RT-ALBUTEROL/IPRATROPIUM 3 ML (DUONEB) VIAL INH SCH (20:20)
[2020-11-23] MEDS: ENOXAPARIN 40 MG/0.4 ML (LOVENOX) SYR SC SCH (20:42)
[2020-11-23] MEDS: SIMvastatin 40 MG (ZOCOR) TAB PO SCH (20:43)
[2020-11-23] MEDS: MELATONIN 3 MG TABLET PO SCH (20:43)
[2020-11-23] MEDS: FAMOTIDINE 20 MG (PEPCID) TABLET PO SCH (20:43)
[2020-11-23] MEDS: guaiFENesin (MUCINEX) 600 MG TAB PO SCH (20:43)
[2020-11-23] MEDS: CEFEPIME 1,000 MG/SWFI 10 ML IV PUSH IV SCH ×2 (20:43)
[2020-11-24] VITALS: BP 99/53
[2020-11-24] MEDS: RT-ALBUTEROL/IPRATROPIUM 3 ML (DUONEB) VIAL INH SCH ×4 (02:23→23:13)
[2020-11-24] MEDS: LACTATED RINGERS 1,000 ML IV SCH ×4 (03:14→22:35)
[2020-11-24 04:18] VITALS: BP 92/55
[2020-11-24] MEDS: CEFEPIME 1,000 MG/SWFI 10 ML IV PUSH IV SCH ×8 (04:32→22:38)
[2020-11-24 05:21] LABS: HEMOGLOBIN 13.8 g/dL (13.3-17.7); WHITE BLOOD COUNT 12.6 10^3/uL (4.3-11.0)
[2020-11-24 05:26] LABS: CALCIUM 8.5 MG/DL (8.5-10.1)
[2020-11-24 08:00] VITALS: BP 89/44
[2020-11-24] MEDS: ASPIRIN E.C. 81 MG (ECOTRIN) TAB PO SCH (09:02)
[2020-11-24] MEDS: guaiFENesin (MUCINEX) 600 MG TAB PO SCH ×2 (09:03→20:26)
[2020-11-24] MEDS ORDERED: SOLI10TA2 PO (09:25)
[2020-11-24] MEDS ORDERED: TMSL.4C PO (09:25)
[2020-11-24 12:00] VITALS: BP 103/55
[2020-11-24 16:00] VITALS: BP 135/56
--- NOTE | 2020-11-24 18:28 | Progress Note ---
Subjective Date Seen by a Provider: Nov 24, 2020 Time Seen by a Provider: 08:20 Subjective/Events-last exam Fwup severe sepsis, multilobular pneumonia, COPD, Acute on Chronic Respiratory Failure, Tobacco abuse, History of Bladder Cancer, History of TIA. Sitting up in chair. Did not sleep well. Coughing but not as short of air. Focused Exam Lactate Level 11/23/20 10:30: Lactic Acid Level 0.92 Objective Exam Vital Signs Date Time Temp Pulse Resp B/P (MAP) Pulse Ox O2 Delivery O2 Flow Rate FiO2 11/24/20 16:00 37.0 69 20 135/56 (82) 93 11/24/20 14:11 91 Nasal Cannula 4.00 11/24/20 13:00 61 11/24/20 12:00 36.3 65 20 103/55 (71) 91 Nasal Cannula 3.00 11/24/20 08:48 92 Nasal Cannula 4.00 11/24/20 08:00 36.0 54 18 89/44 (59) 94 Nasal Cannula 3.00 11/24/20 07:00 54 11/24/20 04:18 36.8 53 20 92/55 (67) 94 Nasal Cannula 5.00 11/24/20 02:23 86 Nasal Cannula 4.00 11/24/20 01:00 60 11/24/20 00:00 36.6 59 20 99/53 (68) 91 Nasal Cannula 3.00 11/23/20 20:20 92 Nasal Cannula 4.00 11/23/20 19:24 36.4 73 20 127/68 (87) 93 Nasal Cannula 3.00 11/23/20 19:00 66 I & O 11/24/20 07:00 Intake Total 3580 ml Output Total 1100 ml Balance 2480 ml Capillary Refill : Less Than 3 Seconds General Appearance: No Apparent Distress Neck: Supple Respiratory: Decreased Breath Sounds, Rales, Rhonci Cardiovascular: Regular Rate, Rhythm Gastrointestinal: normal bowel sounds, non tender, soft Extremity: Non Tender, No Calf Tenderness, No Pedal Edema Neurologic/Psychiatric: Alert, Oriented x3 Results Lab Laboratory Tests 11/24/20 04:55: White Blood Count 12.6H, Red Blood Count 4.01L, Hemoglobin 13.8, Hematocrit 43, Mean Corpuscular Volume 107H, Mean Corpuscular Hemoglobin 34, Mean Corpuscular Hemoglobin Concent 32, Red Cell Distribution Width 13.5, Platelet Count 139, Mean Platelet Volume 10.0, Percent Immature Platelet Fraction 4.4, Sodium Level 136, Potassium Level 4.0, Chloride Level 106, Carbon Dioxide Level 21, Anion Gap 9, Blood Urea Nitrogen 17, Creatinine 1.00, Estimat Glomerular Filtration Rate 73, BUN/Creatinine Ratio 17, Glucose Level 89, Calcium Level 8.5 Microbiology 11/23/20 Blood Culture - Preliminary, Resulted No growth Assessment/Plan Assessment/Plan Assess & Plan/Chief Complaint 1. Severe Sepsis--on sepsis protocol with IVFs and IV cefepime and lovenox, repeat CBC in AM 2. Acute Multilobular Pneumonia--cefepime, SVNS with albuterol, repeat CXR in AM 3. Acute on Chronic Respiratory Failure--on oxygen via NC 4. Chronic/Severe COPD--ongoing tobacco abuse 5. History of TIA--on aspirin and simvastatin 6. History of Bladder Cancer--on surveillance Clinical Quality Measures Admission Status Admission Dx 1. Severe Sepsis--admit on sepsis protocol with IVFs and IV cefepime and lovenox 2. Acute Multilobular Pneumonia--cefepime, SVNS with albuterol 3. Acute on Chronic Respiratory Failure--on oxygen via NC 4. Chronic/Severe COPD--ongoing tobacco abuse 5. History of TIA--resume aspirin and simvastatin 6. History of Bladder Cancer--on surveillance PARISH VALDEZ DO Nov 24, 2020 18:28
[2020-11-24] MEDS ORDERED: TEMAZEPAM 7.5 MG CAP (RESTORIL) PO PRN (18:30)
[2020-11-24 20:00] VITALS: BP 147/70
[2020-11-24] MEDS: FAMOTIDINE 20 MG (PEPCID) TABLET PO SCH (20:26)
[2020-11-24] MEDS: ENOXAPARIN 40 MG/0.4 ML (LOVENOX) SYR SC SCH (20:27)
[2020-11-24] MEDS: SIMvastatin 40 MG (ZOCOR) TAB PO SCH (20:27)
[2020-11-24] MEDS: MELATONIN 3 MG TABLET PO SCH (20:27)
[2020-11-25] VITALS (7 sets, daily range): BP systolic 116–149; BP diastolic 56–68
[2020-11-25] MEDS: RT-ALBUTEROL/IPRATROPIUM 3 ML (DUONEB) VIAL INH SCH ×4 (02:44→20:03)
[2020-11-25] MEDS: CEFEPIME 1,000 MG/SWFI 10 ML IV PUSH IV SCH ×8 (04:19→21:36)
[2020-11-25] MEDS: LACTATED RINGERS 1,000 ML IV SCH ×2 (04:19→16:30)
[2020-11-25 06:15] LABS: HEMATOCRIT 43 % (40-54); HEMOGLOBIN 13.8 g/dL (13.3-17.7); MEAN CORPUSCULAR HEMOGLOBIN 34 pg (25-34); MEAN CORPUSCULAR HGB CONC 32 g/dL (32-36); MEAN CORPUSCULAR VOLUME 106 fL (80-99); PLATELET COUNT 145 10^3/uL (130-400); WHITE BLOOD COUNT 10.3 10^3/uL (4.3-11.0)
[2020-11-25 06:24] LABS: POTASSIUM 3.9 MMOL/L (3.6-5.0)
[2020-11-25 06:25] LABS: CALCIUM 8.6 MG/DL (8.5-10.1)
[2020-11-25 06:29] LABS: CREATININE SERUM 0.82 MG/DL (0.60-1.30)
--- NOTE | 2020-11-25 09:33 | Diagnostic Imaging Report ---
INDICATION: Pneumonia. COMPARISON: 08/15/2011. FINDINGS: Frontal and lateral views of the chest demonstrate moderate bilateral pulmonary infiltrates right greater than left. There are trace effusions. The heart is prominent without pulmonary edema. There is no pneumothorax but osseous structures stable. IMPRESSION: Bilateral pulmonary infiltrates likely pneumonia. Follow-up recommended. Dictated by: Dictated on workstation # [id number]
[2020-11-25] MEDS: ASPIRIN E.C. 81 MG (ECOTRIN) TAB PO SCH (10:35)
[2020-11-25] MEDS: guaiFENesin (MUCINEX) 600 MG TAB PO SCH ×2 (10:35→19:31)
--- NOTE | 2020-11-25 13:36 | Progress Note ---
Subjective Date Seen by a Provider: Nov 25, 2020 Time Seen by a Provider: 08:30 Subjective/Events-last exam Fwup severe sepsis, multilobular pneumonia, COPD, Acute on Chronic Respiratory Failure, Tobacco abuse, History of Bladder Cancer, History of TIA. Sitting up in chair. Fatigued but cough not as bad. Focused Exam Lactate Level 11/23/20 10:30: Lactic Acid Level 0.92 Objective Exam Vital Signs Date Time Temp Pulse Resp B/P (MAP) Pulse Ox O2 Delivery O2 Flow Rate FiO2 11/25/20 12:50 54 11/25/20 09:00 Nasal Cannula 4.00 11/25/20 08:12 90 Nasal Cannula 4.00 11/25/20 08:00 36.2 58 20 128/59 (82) 91 Nasal Cannula 4.00 11/25/20 07:00 58 11/25/20 04:13 36.9 71 18 147/64 (91) 95 Nasal Cannula 4.00 11/25/20 02:44 92 Nasal Cannula 4.00 11/25/20 01:00 57 11/25/20 00:07 37.2 67 16 131/62 (85) 93 Nasal Cannula 4.00 11/24/20 20:59 Nasal Cannula 4.00 11/24/20 20:00 37.3 68 18 147/70 (95) 93 Nasal Cannula 4.00 11/24/20 19:00 74 11/24/20 16:00 37.0 69 20 135/56 (82) 93 11/24/20 14:11 91 Nasal Cannula 4.00 I & O 11/25/20 07:00 Intake Total 1910 ml Output Total 2975 ml Balance -1065 ml Capillary Refill : Less Than 3 Seconds General Appearance: No Apparent Distress Respiratory: Crackles, Decreased Breath Sounds Cardiovascular: Regular Rate, Rhythm, Systolic Murmur Gastrointestinal: normal bowel sounds, non tender, soft Extremity: Non Tender, No Calf Tenderness, No Pedal Edema Neurologic/Psychiatric: Alert, Oriented x3 Results Lab Laboratory Tests 11/25/20 05:50: White Blood Count 10.3, Red Blood Count 4.06L, Hemoglobin 13.8, Hematocrit 43, Mean Corpuscular Volume 106H, Mean Corpuscular Hemoglobin 34, Mean Corpuscular Hemoglobin Concent 32, Red Cell Distribution Width 13.2, Platelet Count 145, Mean Platelet Volume 10.0, Sodium Level 136, Potassium Level 3.9, Chloride Level 105, Carbon Dioxide Level 22, Anion Gap 9, Blood Urea Nitrogen 14, Creatinine 0.82, Estimat Glomerular Filtration Rate 91, BUN/Creatinine Ratio 17, Glucose Level 89, Calcium Level 8.6, C-Reactive Protein High Sensitivity 18.26H Microbiology 11/23/20 Urine Culture - Preliminary, Resulted Enterococcus faecalis 11/23/20 Blood Culture - Preliminary, Resulted No growth Assessment/Plan Assessment/Plan Assess & Plan/Chief Complaint 1. Severe Sepsis--on sepsis protocol with IVFs but improving so will decrease IVF rate, continue IV cefepime and lovenox 2. Acute Multilobular Pneumonia--cefepime, SVNS with albutero 3. Acute on Chronic Respiratory Failure--on oxygen via NC 4. Chronic/Severe COPD--ongoing tobacco abuse, add advair 5. History of TIA--on aspirin and simvastatin 6. History of Bladder Cancer--on surveillance Clinical Quality Measures Admission Status Admission Dx 1. Severe Sepsis--admit on sepsis protocol with IVFs and IV cefepime and lovenox 2. Acute Multilobular Pneumonia--cefepime, SVNS with albuterol 3. Acute on Chronic Respiratory Failure--on oxygen via NC 4. Chronic/Severe COPD--ongoing tobacco abuse 5. History of TIA--resume aspirin and simvastatin 6. History of Bladder Cancer--on surveillance PARISH VALDEZ DO Nov 25, 2020 13:36
[2020-11-25] MEDS: SIMvastatin 40 MG (ZOCOR) TAB PO SCH (19:31)
[2020-11-25] MEDS: MELATONIN 3 MG TABLET PO SCH (19:31)
[2020-11-25] MEDS: ENOXAPARIN 40 MG/0.4 ML (LOVENOX) SYR SC SCH (19:31)
[2020-11-25] MEDS: FAMOTIDINE 20 MG (PEPCID) TABLET PO SCH (19:31)
[2020-11-25] MEDS: RT--FLUTICASONE/SALMETEROL 113-14 (AIRDUO RespiCLICK) IH SCH (20:03)
[2020-11-25] MEDS ORDERED: ADVAIR HFA 115/21 MCG INHALER 8 GM IH SCH (21:00)
[2020-11-26] MEDS: CEFEPIME 1,000 MG/SWFI 10 ML IV PUSH IV SCH ×8 (04:01→22:03)
[2020-11-26 04:21] VITALS: BP 115/55
[2020-11-26] MEDS: RT-ALBUTEROL/IPRATROPIUM 3 ML (DUONEB) VIAL INH SCH ×4 (05:46→21:14)
[2020-11-26] MEDS: LACTATED RINGERS 1,000 ML IV SCH (06:05)
[2020-11-26 07:21] VITALS: BP 162/70
[2020-11-26] MEDS: ASPIRIN E.C. 81 MG (ECOTRIN) TAB PO SCH (07:41)
[2020-11-26] MEDS: guaiFENesin (MUCINEX) 600 MG TAB PO SCH ×2 (07:41→20:42)
[2020-11-26] MEDS: RT--FLUTICASONE/SALMETEROL 113-14 (AIRDUO RespiCLICK) IH SCH ×2 (10:14→21:14)
--- NOTE | 2020-11-26 11:36 | Progress Note ---
Subjective Subjective Date Seen by Provider: Nov 26, 2020 Time Seen by Provider: 09:15 No overnight events- patient reports he is doing better. Ideally he would like to go home soon but understands why we will likely keep him until saturday. Review of Systems General: No Chills, No Night Sweats HEENT: No Head Aches Pulmonary: Dyspnea (mproved), Cough Cardiovascular: No: Chest Pain, Palpitations Gastrointestinal: No: Nausea, Vomiting, Abdominal Pain Genitourinary: No Dysuria Neurological: Weakness Objective Exam Vital Signs Vital Signs Date Time Temp Pulse Resp B/P (MAP) Pulse Ox O2 Delivery O2 Flow Rate FiO2 11/26/20 10:13 90 Nasal Cannula 4.00 11/26/20 08:00 Nasal Cannula 4.00 11/26/20 07:21 37.2 81 20 162/70 (100) 90 Nasal Cannula 5.00 11/26/20 07:00 55 11/26/20 04:21 36.6 60 17 115/55 (75) 94 Nasal Cannula 4.00 11/26/20 01:00 62 11/25/20 23:49 36.7 62 20 127/68 (87) 92 Nasal Cannula 4.00 11/25/20 20:04 90 Nasal Cannula 4.00 11/25/20 19:50 37.2 64 20 149/68 (95) 92 Nasal Cannula 4.00 11/25/20 19:30 Nasal Cannula 4.00 11/25/20 19:00 66 11/25/20 15:45 37.2 64 22 138/60 (86) 93 Nasal Cannula 4.00 11/25/20 15:36 90 Nasal Cannula 4.00 11/25/20 12:50 54 11/25/20 12:00 36.7 53 20 116/56 (76) 90 Nasal Cannula 4.00 I & O 11/26/20 07:00 Intake Total 2850 ml Output Total 3920 ml Balance -1070 ml General Appearance: No Apparent Distress HEENT: PERRL/EOMI, Normal ENT Inspection, Other (Mucous membranes moist) Neck: Supple Respiratory: Crackles, Decreased Breath Sounds Cardiovascular: Regular Rate, Rhythm, Systolic Murmur Gastrointestinal: Non Tender, Soft Rectal: Deferred Back: No CVA Tenderness Extremity: Non Tender, No Calf Tenderness, No Pedal Edema Neurologic/Psychiatric: Alert, Oriented x3 Skin: Warm/Dry Results Lab Microbiology 11/23/20 Urine Culture - Final, Complete Enterococcus faecalis 11/23/20 Blood Culture - Preliminary, Resulted No growth Assessment/Plan Assessment/Plan Assessment and Plan * Sepsis-- due to multilobular pneumonia- continue IV cefepime and lovenox * Acute on Chronic Respiratory Failure--on oxygen via NC, SCNS * Chronic/Severe COPD--ongoing tobacco abuse, add advair * History of TIA--on aspirin and simvastatin * History of Bladder Cancer--on surveillance Dispo: continue to monitor. Will need a new home oxygen test- as he will need it while resting instead of his baseline of 2L qHS. IDALIA VOGEL MD Nov 26, 2020 11:36
[2020-11-26 11:38] VITALS: BP 125/60
[2020-11-26 15:27] VITALS: BP 147/64
[2020-11-26] MEDS: ENOXAPARIN 40 MG/0.4 ML (LOVENOX) SYR SC SCH (16:42)
[2020-11-26 19:18] VITALS: BP 104/51
[2020-11-26] MEDS: FAMOTIDINE 20 MG (PEPCID) TABLET PO SCH (20:41)
[2020-11-26] MEDS: MELATONIN 3 MG TABLET PO SCH (20:41)
[2020-11-26] MEDS: SIMvastatin 40 MG (ZOCOR) TAB PO SCH (20:42)
[2020-11-27] VITALS (7 sets, daily range): BP systolic 113–153; BP diastolic 57–79
[2020-11-27] MEDS: CEFEPIME 1,000 MG/SWFI 10 ML IV PUSH IV SCH ×8 (04:09→23:14)
[2020-11-27] MEDS: RT-ALBUTEROL/IPRATROPIUM 3 ML (DUONEB) VIAL INH SCH ×4 (04:49→21:53)
[2020-11-27] MEDS: RT--FLUTICASONE/SALMETEROL 113-14 (AIRDUO RespiCLICK) IH SCH ×2 (07:35→21:53)
--- NOTE | 2020-11-27 07:39 | Progress Note ---
Subjective Subjective Date Seen by Provider: Nov 27, 2020 Time Seen by Provider: 08:15 No overnight events- Urine culture came back enterococcus- adding on macrobid. Patient would like to go home when we allow him. Review of Systems General: No Chills, No Night Sweats HEENT: No Head Aches Pulmonary: Dyspnea (mproved), Cough Cardiovascular: No: Chest Pain, Palpitations Gastrointestinal: No: Nausea, Vomiting, Abdominal Pain Genitourinary: No Dysuria Neurological: Weakness Objective Exam Vital Signs Vital Signs Date Time Temp Pulse Resp B/P (MAP) Pulse Ox O2 Delivery O2 Flow Rate FiO2 11/27/20 07:37 92 Nasal Cannula 4.00 11/27/20 07:36 92 Nasal Cannula 4.00 11/27/20 07:26 35.9 63 20 114/59 (77) 93 Nasal Cannula 4.00 11/27/20 04:13 36.9 63 19 153/79 (103) 93 Nasal Cannula 4.00 11/27/20 01:00 60 11/27/20 00:00 37.0 79 19 113/57 (75) 92 Nasal Cannula 4.00 11/26/20 21:15 94 Nasal Cannula 4.00 11/26/20 21:14 94 Nasal Cannula 4.00 11/26/20 20:45 Nasal Cannula 4.00 11/26/20 19:18 36.7 78 22 104/51 (68) 91 Nasal Cannula 4.00 11/26/20 19:00 72 11/26/20 15:27 36.5 64 18 147/64 (91) 93 Nasal Cannula 4.00 11/26/20 14:52 92 Nasal Cannula 4.00 11/26/20 13:00 56 11/26/20 11:38 35.3 52 20 125/60 (81) 91 Nasal Cannula 4.00 11/26/20 10:13 90 Nasal Cannula 4.00 11/26/20 08:00 Nasal Cannula 4.00 I & O 11/27/20 07:00 Intake Total 2404 ml Output Total 1550 ml Balance 854 ml General Appearance: No Apparent Distress HEENT: PERRL/EOMI, Normal ENT Inspection, Other (Mucous membranes moist) Neck: Supple Respiratory: Crackles, Decreased Breath Sounds Cardiovascular: Regular Rate, Rhythm, Systolic Murmur Gastrointestinal: Non Tender, Soft Rectal: Deferred Back: No CVA Tenderness Extremity: Non Tender, No Calf Tenderness, No Pedal Edema Neurologic/Psychiatric: Alert, Oriented x3 Skin: Warm/Dry Results Lab Microbiology 11/23/20 Urine Culture - Final, Complete Enterococcus faecalis 11/23/20 Blood Culture - Preliminary, Resulted No growth Assessment/Plan Assessment/Plan Assessment and Plan * Sepsis-- due to multilobular pneumonia- continue IV cefepime and lovenox * Acute on Chronic Respiratory Failure--on oxygen via NC, SCNS * Chronic/Severe COPD--ongoing tobacco abuse, add advair * History of TIA--on aspirin and simvastatin * History of Bladder Cancer--on surveillance * UTI - Urine culture came back enterococcus- adding on macrobid. Dispo: continue to monitor. Will need a new home oxygen test- ordered today. -as he will need it while resting instead of his baseline of 2L qHS. IDALIA VOGEL MD Nov 27, 2020 07:39
[2020-11-27] MEDS: ASPIRIN E.C. 81 MG (ECOTRIN) TAB PO SCH (08:34)
[2020-11-27] MEDS: guaiFENesin (MUCINEX) 600 MG TAB PO SCH ×2 (08:34→19:22)
[2020-11-27] MEDS: NITROFURANTOIN 50 MG (MACRODANTIN) CAP PO SCH ×2 (08:34→19:23)
[2020-11-27] MEDS: ENOXAPARIN 40 MG/0.4 ML (LOVENOX) SYR SC SCH (18:05)
[2020-11-27] MEDS: FAMOTIDINE 20 MG (PEPCID) TABLET PO SCH (19:22)
[2020-11-27] MEDS: SIMvastatin 40 MG (ZOCOR) TAB PO SCH (19:23)
[2020-11-27] MEDS: MELATONIN 3 MG TABLET PO SCH (19:23)
[2020-11-27] MEDS ORDERED: guaiFENesin/CODEINE (ROBITUSSIN AC) 10ML UDC PO PRN (21:00)
[2020-11-28] MEDS: RT-ALBUTEROL/IPRATROPIUM 3 ML (DUONEB) VIAL INH SCH ×2 (02:37→08:15)
[2020-11-28 04:00] VITALS: BP 131/65
[2020-11-28] MEDS: CEFEPIME 1,000 MG/SWFI 10 ML IV PUSH IV SCH ×4 (04:58→10:10)
[2020-11-28 06:01] LABS: BASOPHILS % (AUTO) 1 % (0-10); EOSINOPHILS # (AUTO) 0.6 10^3/uL (0.0-0.3); EOSINOPHILS % (AUTO) 8 % (0-10); HEMATOCRIT 47 % (40-54); HEMOGLOBIN 14.8 g/dL (13.3-17.7); LYMPHOCYTES # (AUTO) 1.5 10^3/uL (1.0-4.0); LYMPHOCYTES % (AUTO) 18 % (12-44); MEAN CORPUSCULAR HEMOGLOBIN 34 pg (25-34); MEAN CORPUSCULAR HGB CONC 32 g/dL (32-36); MEAN CORPUSCULAR VOLUME 106 fL (80-99); MEAN PLATELET VOLUME 9.7 fL (9.0-12.2); MONOCYTES # (AUTO) 0.9 10^3/uL (0.0-1.0); MONOCYTES % (AUTO) 11 % (0-12); NEUTROPHILS % (AUTO) 62 % (42-75); PLATELET COUNT 187 10^3/uL (130-400)
[2020-11-28 06:11] LABS: POTASSIUM 3.8 MMOL/L (3.6-5.0)
[2020-11-28 06:12] LABS: CALCIUM 9.2 MG/DL (8.5-10.1)
[2020-11-28 06:17] LABS: CREATININE SERUM 0.98 MG/DL (0.60-1.30)
[2020-11-28 08:05] VITALS: BP 126/74
[2020-11-28] MEDS: RT--FLUTICASONE/SALMETEROL 113-14 (AIRDUO RespiCLICK) IH SCH (08:16)
[2020-11-28] MEDS: ASPIRIN E.C. 81 MG (ECOTRIN) TAB PO SCH (08:23)
[2020-11-28] MEDS: guaiFENesin (MUCINEX) 600 MG TAB PO SCH (08:23)
[2020-11-28] MEDS: NITROFURANTOIN 50 MG (MACRODANTIN) CAP PO SCH (08:23)
[2020-11-28] MEDS ORDERED: ASPI-1238 PO (12:11)
[2020-11-28] MEDS ORDERED: AMOX-355 PO (12:11)
[2020-11-28] MEDS ORDERED: IPRA3AMP31 INH (12:11)
--- NOTE | 2020-11-28 12:31 | Discharge Summary ---
Diagnosis/Chief Complaint Date of Admission Nov 23, 2020 at 13:37 Date of Discharge Discharge Date: Nov 28, 2020 Discharge Diagnosis 1. Severe Sepsis--improved 2. Acute Multilobular Pneumonia--improving, home on augmentin 3. Acute on Chronic Respiratory Failure--on oxygen via NC--will need continuous oxygen on DC 4. Chronic/Severe COPD--ongoing tobacco abuse, home on SVNS with duoneb 5. History of TIA--on aspirin and simvastatin 6. History of Bladder Cancer--on surveillance 7. UTI with Enterococcus faecalis--home on augmentin Reason Hospital Visit This is a 75 year old male with a history of COPD and ongoing tobacco abuse who was brought to the emergency room due to worsening fatigue, cough and shortness of air. He was hypoxic on admission with an oxygen saturation of 65%. His rapid COVID was negative. A CT angiogram of the chest showed no PE but did confirm multilobular pneumonia. He was hypotensive and his WBC count was 17,900 with an elevated CRP and procalcitonin. He will be admitted for sepsis and pn eumonia. Discharge Summary Hospital Course Was the Problem List Reviewed?: Yes Hospital Course This is a 75 year old male with a history of COPD and ongoing tobacco abuse who was brought to the emergency room due to worsening fatigue, cough and shortness of air. He was hypoxic on admission with an oxygen saturation of 65%. His rapid COVID was negative. A CT angiogram of the chest showed no PE but did confirm multilobular pneumonia. He was hypotensive and his WBC count was 17,900 with an elevated CRP and procalcitonin. He will be admitted for sepsis and pneumonia. He was admitted to the medical floor on sepsis protocol. He was given IV cefepime. He was also given guafenesin and started on SVNs with duoneb. Incentive spirometry was also added. He continued on oxygen requiring 4-6liters via NC. His WBC is back to normal by discharge at 8.0. He has remained afebrile. His urine culture from admission did grow out Enterococcus faecalis so he was started on Macrobid. He is feeling much better and anxious to go home. He will be sent home on oral augmentin which should cover both pneumonia and his UTI as well as continuous oxygen at 4 liters at rest and 6 liters with exertion. He will also be on nebulizer treatments with duoneb q6hrs and q4hrs prn. He is instructed on ongoing smoking cessation. He will follow up with me in 1 week. Labs Laboratory Tests 11/28/20 05:45: Mean Corpuscular Volume 106H, Eosinophils # (Auto) 0.6H Procedures None. Discharge Physical Examination Allergies: Coded Allergies: No Known Drug Allergies (Unverified , 01/07/12) Vitals & I&Os Vital Signs Date Time Temp Pulse Resp B/P (MAP) Pulse Ox O2 Delivery O2 Flow Rate FiO2 11/28/20 08:16 93 Nasal Cannula 4.00 11/28/20 08:05 35.3 54 20 126/74 (91) General Appearance: Alert, Oriented X3, No Acute Distress Respiratory: Other (decreased aeration with fine crackles) Cardiovascular: Regular Rate Abdominal: Normal Bowel Sounds, Soft, No Tenderness Extremities: No Clubbing, No Cyanosis, No Edema Psych/Mental Status: Mental Status NL, Mood NL Discharge Home Medications Reviewed and agree with Discharge Medication list on patient's Discharge Instruction sheet Instructions to Patient/Family Please see electronic discharge instructions given to patient. PARISH VALDEZ DO Nov 28, 2020 12:31
== END 2020-11-28 13:40 | disposition home or self-care (01) | DRG 871 ==
LOC: EDUNIT# 09:31 → ER 09:33 → 4TH 13:37
PROVIDERS: ADMIT Family Medicine; ATTEND Family Medicine
DX: A41.9 Sepsis, unspecified organism (principal); J18.9 Pneumonia, unspecified organism; J96.21 Acute and chronic respiratory failure with hypoxia; N39.0 Urinary tract infection, site not specified; J44.0 Chronic obstructive pulmonary disease with (acute) lower respiratory infection; R65.20 Severe sepsis without septic shock; F17.210 Nicotine dependence, cigarettes, uncomplicated; B95.2 Enterococcus as the cause of diseases classified elsewhere; F32.9 Major depressive disorder, single episode, unspecified; E78.00 Pure hypercholesterolemia, unspecified; Z85.51 Personal history of malignant neoplasm of bladder; Z86.73 Personal history of transient ischemic attack (TIA), and cerebral infarction without residual deficits; Z79.82 Long term (current) use of aspirin; Z79.899 Other long term (current) drug therapy; Z20.822 Contact with and (suspected) exposure to COVID-19; Z99.81 Dependence on supplemental oxygen; Z86.718 Personal history of other venous thrombosis and embolism
CPT/HCPCS: 36415; 71045; 71046; 71275; 80048; 80053; 81000; 83605; 83880; 84145; 85007; 85025; 85027; 85379; 85610; 85730; 86141; 87040; 87077; 87088; 87186; 87636; 94640; 94760; 94761; 96361; 96365

== ENCOUNTER 2020-12-19 11:46 | Emergency (ER) | payer MEDICARE ==
[~2020-12-19] VITALS: Ht 177.8 cm; Wt 68.0 kg
[~2020-12-19 11:46] MED LIST changes: +AMOX-355 PO; +IPRA3AMP31 INH; +SOLI10TA2 PO; +TMSL.4C PO
--- NOTE | 2020-12-19 12:31 | ED Trauma-Multisystem ---
General Chief Complaint: Trauma-Non Activation Stated Complaint: FELL Nursing Triage Note: PT TO RM 2 BY WC WITH COMPLAINT OF FALL. STATES WAS STANDING AT THE FRIDGE WHEN HE FELL TO THE FLOOR. STATES HE FELT LIGHT HEADED AFTER. PT WAS RECENTLY ADMITTED TO HOSPITAL FOR PNEUMONIA AND IS ON HOME O2. STATES PT HAS BEEN A HEADACHE, WITH NECK PAIN FOR ABOUT A WEEK AND IS NOT KNOWN TO HAVE HEADACHES. STATES PT ALSO QUIT SMOKING APPROX A MONTH AGO. Source of Information: Patient Exam Limitations: No Limitations History of Present Illness Date Seen by Provider: Dec 19, 2020 Time Seen by Provider: 12:15 Initial Comments This is a well-appearing 75-year-old male presented to the ER with complaints of right shoulder pain, right upper arm pain after a fall in his kitchen. States that he was standing by the kitchen when he felt dizzy and fell against a refrigerator on his right side. Unsure of LOC. States that he was wearing his oxygen which he has been on since his discharge from the hospital 3 weeks ago for pneumonia. Additionally states he has been diagnosed with prostate and bladder cancer. C/O mild discomfort in his upper arm and neck. Denies need for medication at this time. Denies fever, chills, cough, shortness of breath, chest pain, nausea, vomiting, diarrhea. Allergies and Home Medications Allergies Coded Allergies: No Known Drug Allergies (Unverified , 01/07/12) Patient Home Medication List Amoxicillin/Potassium Clav (Augmentin 500-125 Tablet) 1 Each Tablet, 1 EACH PO BID Prescribed by: PARISH VALDEZ on 11/28/20 1211 Aspirin (Aspirin EC) 81 Mg Tablet.dr, 81 MG PO DAILY Prescribed by: PARISH VALDEZ on 11/28/20 1211 Calcium Carbonate (Calcium) 500 Mg Tablet, 500 MG PO HS, (Reported) Entered as Reported by: CLAUDIA KEBEDE on 03/09/20 1508 Escitalopram Oxalate (Lexapro) 20 Mg Tablet, 10 MG PO DAILY, (Reported) Entered as Reported by: CLAUDIA KEBEDE on 03/09/20 1508 Ipratropium/Albuterol Sulfate (Iprat-Albut 0.5-3(2.5) mg/3 ml) 3 Ml Ampul.neb, 3 ML INH RTQ6HR Prescribed by: PARISH VALDEZ on 11/28/20 1211 Simvastatin (Simvastatin) 80 Mg Tablet, 40 MG PO HS, (Reported) Entered as Reported by: CLAUDIA KEBEDE on 03/09/20 1508 Solifenacin Succinate (Vesicare) 10 Mg Tablet, 10 MG PO DAILY, (Reported) Entered as Reported by: CLADUIA KEBEDE on 11/24/20 0925 Tamsulosin HCl (Flomax) 0.4 Mg Cap, 0.4 MG PO DAILY, (Reported) Entered as Reported by: CLAUDIA KEBEDE on 11/24/20 0925 Past Crgnddy-Ryqkvn-Jzwqvk Hx Patient Social History Tobacco Use?: Yes Tobacco type used: Cigarettes Smoking Status: Former Smoker Substance use?: No Alcohol Use?: No Pt feels they are or have been: No Immunizations Up To Date First/Initial COVID19 Vaccinat: JUNE 2020 Second COVID19 Vaccination Gabriel: JUNE 2020 COVID19 Vaccine Mobile Paint Specialist: BHARATHI Past Medical History Surgery/Hospitalization HX: BLADDER TUMOR REMOVAL Surgeries: Yes (CTR, BILAT CEA, LEFT SHOULDER SCOPE, PROSTATE SURGERY, FINGER REATTACHMENT) Respiratory: Yes COPD Cardiac: Yes High Cholesterol Neurological: No (CURRENTLY HAS BRAIN ANEURYSM BEING CHECKED) Genitourinary: No Gastrointestinal: No Musculoskeletal: No Chronic Back Pain Endocrine: No Cancer: No Psychosocial: Yes Depression Integumentary: No Blood Disorders: Yes (THROMBOSED VEIN IN LEG) Family Medical History Cardiovascular disease G8 BROTHER Neoplasm 19 FATHER (protaste cancer) Physical Exam Vital Signs Vital Signs - First Documented 12/19/20 12:03 Temp 36.5 Pulse 57 Resp 16 B/P (MAP) 125/61 (82) Pulse Ox 92 O2 Delivery Nasal Cannula O2 Flow Rate 3.00 Height, Weight, BMI Height: 5'10.00" Weight: 165lbs. 4.0oz. 77.237254ar; 21.00 BMI Method: Progress/Results/Core Measures Results/Orders Lab Results Laboratory Tests Test 12/19/20 14:00 12/19/20 14:18 Range/Units White Blood Count 11.4 H 4.3-11.0 10^3/uL Red Blood Count 5.05 4.30-5.52 10^6/uL Hemoglobin 16.7 13.3-17.7 g/dL Hematocrit 52 40-54 % Mean Corpuscular Volume 102 H 80-99 fL Mean Corpuscular Hemoglobin 33 25-34 pg Mean Corpuscular Hemoglobin Concent 32 32-36 g/dL Red Cell Distribution Width 12.2 10.0-14.5 % Platelet Count 168 130-400 10^3/uL Mean Platelet Volume 10.0 9.0-12.2 fL Immature Granulocyte % (Auto) 1 % Neutrophils (%) (Auto) 78 H 42-75 % Lymphocytes (%) (Auto) 12 12-44 % Monocytes (%) (Auto) 6 0-12 % Eosinophils (%) (Auto) 2 0-10 % Basophils (%) (Auto) 0 0-10 % Neutrophils # (Auto) 8.9 H 1.8-7.8 10^3/uL Lymphocytes # (Auto) 1.4 1.0-4.0 10^3/uL Monocytes # (Auto) 0.7 0.0-1.0 10^3/uL Eosinophils # (Auto) 0.3 0.0-0.3 10^3/uL Basophils # (Auto) 0.0 0.0-0.1 10^3/uL Immature Granulocyte # (Auto) 0.1 0.0-0.1 10^3/uL Sodium Level 138 135-145 MMOL/L Potassium Level 4.4 3.6-5.0 MMOL/L Chloride Level 100 98-107 MMOL/L Carbon Dioxide Level 32 21-32 MMOL/L Anion Gap 6 5-14 MMOL/L Blood Urea Nitrogen 17 7-18 MG/DL Creatinine 1.18 0.60-1.30 MG/DL Estimat Glomerular Filtration Rate 60 BUN/Creatinine Ratio 14 Glucose Level 105 70-105 MG/DL Calcium Level 10.3 H 8.5-10.1 MG/DL Corrected Calcium 10.2 H 8.5-10.1 MG/DL Magnesium Level 2.4 1.6-2.4 MG/DL Total Bilirubin 0.3 0.1-1.0 MG/DL Aspartate Amino Transf (AST/SGOT) 29 5-34 U/L Alanine Aminotransferase (ALT/SGPT) 42 0-55 U/L Alkaline Phosphatase 96 40-136 U/L Myoglobin 67.1 10.0-92.0 NG/ML Troponin I < 0.028 <0.028 NG/ML Total Protein 8.4 H 6.4-8.2 GM/DL Albumin 4.1 3.2-4.5 GM/DL Urine Color YELLOW Urine Clarity CLEAR Urine pH 6.5 5-9 Urine Specific Lena 1.020 1.016-1.022 Urine Protein NEGATIVE NEGATIVE Urine Glucose (UA) NEGATIVE NEGATIVE Urine Ketones NEGATIVE NEGATIVE Urine Nitrite NEGATIVE NEGATIVE Urine Bilirubin NEGATIVE NEGATIVE Urine Urobilinogen 0.2 < = 1.0 MG/DL Urine Leukocyte Esterase 2+ H NEGATIVE Urine RBC (Auto) TRACE-L NEGATIVE Urine RBC RARE /HPF Urine WBC 10-25 H /HPF Urine Crystals NONE /LPF Urine Bacteria FEW H /HPF Urine Casts NONE /LPF Urine Mucus NEGATIVE /LPF Urine Culture Indicated YES My Orders Orders - EMILIANO JONES APRN Orthostatic Vital Signs (Adult (12/19/20 12:27) Cbc With Automated Diff (12/19/20 12:27) Comprehensive Metabolic Panel (12/19/20 12:27) Ekg Tracing (12/19/20 12:27) Chest 1 View, Ap/Pa Only (12/19/20 12:27) Humerus, Right, 2 Views (12/19/20 12:27) Ct Head/Cervical Spine Wo (12/19/20 12:27) Ua Culture If Indicated (12/19/20 12:27) Troponin I (12/19/20 13:56) Myoglobin Serum (12/19/20 13:56) Magnesium (12/19/20 13:56) Ed Iv/Invasive Line Start (12/19/20 14:08) Urine Culture (12/19/20 14:18) Vital Signs/I&O 12/19/20 12/19/20 12:03 14:02 Temp 36.5 Pulse 57 58 65 73 Resp 16 B/P (MAP) 125/61 (82) 154/68 (96) 141/70 (93) 101/68 (79) Pulse Ox 92 O2 Delivery Nasal Cannula O2 Flow Rate 3.00 Blood Pressure Mean: 82 Diagnostic Imaging Diagonstic Imaging: CT Plain Films/CT/US/NM/MRI: head Comments [facility] [place], [place] NAME: PREMAJEROD R [facility] REC#: [id number] PT STATUS: REG ER : 1945 PHYSICIAN: EMILIANO JONES APRN ADMIT DATE: 12/19/20/ER Draft Date of Exam:12/19/20 CT HEAD/CERVICAL SPINE WO PROCEDURE: CT head and CT cervical spine without contrast. TECHNIQUE: Multiple contiguous axial images were obtained through the brain and cervical spine without the use of intravenous contrast. Sagittal and coronal reformations through the cervical spine were then performed. Auto Exposure Controls were utilized during the CT exam to meet ALARA standards for radiation dose reduction. INDICATION: Syncope and neck pain. COMPARISON: Comparison is made with prior head CT from 03/09/2020. FINDINGS: CT HEAD: Ventricles and sulci are prominent, similar to prior exam. Periventricular hypodensity is noted, consistent with chronic microvascular ischemia. No sulcal effacement or midline shift is identified. No acute intra-axial or extra-axial hemorrhage is detected. Cisterns are patent. Visualized paranasal sinuses are clear. IMPRESSION: Stable chronic changes. No acute intracranial process is detected. CT CERVICAL SPINE: Curvature and alignment of the cervical spine is normal. There is generalized degenerative disc disease, greatest at C5-C6 level with disc space narrowing and marginal spurring. No fractures are identified. Prevertebral tissues are within normal limits. Odontoid is intact. IMPRESSION: Cervical spondylosis. No acute bony abnormality is detected. Dictated on workstation # [id number] Dict: 12/19/20 1354 Trans: 12/19/20 1403 AS6 [id number] Interpreted by: BAM ORNELAS MD Electronically signed by: Reviewed: Reviewed by Me Diagonstic Imaging: Xray Comments [facility], [place] NAME: JEROD LLOYD [facility] REC#: [id number] PT STATUS: REG ER : 1945 PHYSICIAN: EMILIANO JONES APRN ADMIT DATE: 12/19/20/ER Draft Date of Exam:12/19/20 HUMERUS, RIGHT, 2 VIEWS INDICATION: Fall with right arm pain. TIME OF EXAM: 12:56 PM 2 views right humerus were obtained. FINDINGS: Alignment at the shoulder and elbow appears normal. The humerus appears intact. No fractures are seen. IMPRESSION: No acute bony abnormality is detected. Dictated on workstation # [id number] Dict: 12/19/20 1322 Trans: 12/19/20 1324 [id number] Interpreted by: BAM ORNELAS MD Electronically signed by: Reviewed: Reviewed by Me Diagonstic Imaging: Xray Plain Films/CT/US/NM/MRI: chest Reviewed: Reviewed by Me Departure Impression Primary Impression: Fall on same level Additional Impressions: Orthostatic hypotension Urinary tract infection Disposition: HOME, SELF-CARE Condition: Stable Departure-Patient Inst. Referrals: PARISH VALDEZ DO (PCP/Family) Primary Care Physician Patient Instructions: Orthostatic Hypotension, Minor Head Injury (DC), Urinary Tract Infection, Adult ED Add. Discharge Instructions: Plan: 1. Change positions slowly. When rising stand for a few minutes in the same spot to help reduce dizziness and risk of falling. 2. May take Tylenol as needed for pain per package. Drink plenty of water. 3. If you being to feel dizzy, please sit down as soon as you are able to reduce risk of falling. 4. Follow up with your doctor next week if you are continuing to experience dizziness. 5. Return for any new, concerning, or worsening symptoms. All discharge instructions reviewed with patient and/or family. Voiced understanding. Scripts Sulfamethoxazole/Trimethoprim (Bactrim Ds Tablet) 1 Each Tablet 1 EACH PO BID for 7 Days, #14 TAB 0 Refills Prov: EMILIANO JONES HISTORY PROFESSOR 12/19/20 EMILIANO JONES HISTORY PROFESSOR Dec 19, 2020 12:31
--- NOTE | 2020-12-19 13:25 | Diagnostic Imaging Report ---
INDICATION: Fall with right arm pain. TIME OF EXAM: 12:56 PM 2 views right humerus were obtained. FINDINGS: Alignment at the shoulder and elbow appears normal. The humerus appears intact. No fractures are seen. IMPRESSION: No acute bony abnormality is detected. Dictated by: Dictated on workstation # [id number]
[2020-12-19 14:02] VITALS: BP_SYST 101; BP_SYST 141; BP_SYST 154; BP_DIAS 68; BP_DIAS 70
--- NOTE | 2020-12-19 14:03 | Diagnostic Imaging Report ---
PROCEDURE: CT head and CT cervical spine without contrast. TECHNIQUE: Multiple contiguous axial images were obtained through the brain and cervical spine without the use of intravenous contrast. Sagittal and coronal reformations through the cervical spine were then performed. Auto Exposure Controls were utilized during the CT exam to meet ALARA standards for radiation dose reduction. INDICATION: Syncope and neck pain. COMPARISON: Comparison is made with prior head CT from 03/09/2020. FINDINGS: CT HEAD: Ventricles and sulci are prominent, similar to prior exam. Periventricular hypodensity is noted, consistent with chronic microvascular ischemia. No sulcal effacement or midline shift is identified. No acute intra-axial or extra-axial hemorrhage is detected. Cisterns are patent. Visualized paranasal sinuses are clear. IMPRESSION: Stable chronic changes. No acute intracranial process is detected. CT CERVICAL SPINE: Curvature and alignment of the cervical spine is normal. There is generalized degenerative disc disease, greatest at C5-C6 level with disc space narrowing and marginal spurring. No fractures are identified. Prevertebral tissues are within normal limits. Odontoid is intact. IMPRESSION: Cervical spondylosis. No acute bony abnormality is detected. Dictated by: Dictated on workstation # [id number]
[2020-12-19 14:16] LABS: BASOPHILS % (AUTO) 0 % (0-10); EOSINOPHILS # (AUTO) 0.3 10^3/uL (0.0-0.3); EOSINOPHILS % (AUTO) 2 % (0-10); HEMATOCRIT 52 % (40-54); HEMOGLOBIN 16.7 g/dL (13.3-17.7); LYMPHOCYTES # (AUTO) 1.4 10^3/uL (1.0-4.0); LYMPHOCYTES % (AUTO) 12 % (12-44); MEAN CORPUSCULAR HEMOGLOBIN 33 pg (25-34); MEAN CORPUSCULAR HGB CONC 32 g/dL (32-36); MEAN CORPUSCULAR VOLUME 102 fL (80-99); MONOCYTES # (AUTO) 0.7 10^3/uL (0.0-1.0); MONOCYTES % (AUTO) 6 % (0-12); NEUTROPHILS # (AUTO) 8.9 10^3/uL (1.8-7.8); NEUTROPHILS % (AUTO) 78 % (42-75); PLATELET COUNT 168 10^3/uL (130-400); WHITE BLOOD COUNT 11.4 10^3/uL (4.3-11.0)
[2020-12-19 14:25] LABS: BILIRUBIN,URINE NEGATIVE (NEGATIVE); CLARITY,URINE CLEAR; COLOR,URINE YELLOW; GLUCOSE, URINE (UA) NEGATIVE (NEGATIVE); KETONES,URINE NEGATIVE (NEGATIVE); LEUKOCYTE ESTERASE ,URINE 2+ (NEGATIVE); NITRITE,URINE NEGATIVE (NEGATIVE); PH,URINE 6.5 (5-9); PROTEIN,URINE NEGATIVE (NEGATIVE)
[2020-12-19 14:33] LABS: ALBUMIN 4.1 GM/DL (3.2-4.5); POTASSIUM 4.4 MMOL/L (3.6-5.0)
[2020-12-19 14:34] LABS: CALCIUM 10.3 MG/DL (8.5-10.1)
[2020-12-19 14:36] LABS: TOTAL PROTEIN 8.4 GM/DL (6.4-8.2)
[2020-12-19 14:37] LABS: BILIRUBIN,TOTAL 0.3 MG/DL (0.1-1.0)
[2020-12-19 14:39] LABS: CREATININE SERUM 1.18 MG/DL (0.60-1.30)
[2020-12-19 14:42] LABS: BACTERIA,URINE FEW /HPF; RBC,URINE RARE /HPF
[2020-12-19 14:42] LABS: MAGNESIUM 2.4 MG/DL (1.6-2.4)
--- NOTE | 2020-12-19 14:43 | Diagnostic Imaging Report ---
INDICATION: Fall with right humeral pain, recent pneumonia. Frontal chest obtained at 12:54 p.m. and compared to 11/25/2020 Heart is mildly enlarged. There is central vascular congestion. There is diffuse interstitial infiltrate with some alveolar infiltrate in the right base and minimal infiltrate in the left base. These findings are not grossly changed compared to the prior study. Is no pneumothorax or pleural fluid. The is calcified pleural plaquing on the right side IMPRESSION: Stable congestive changes and diffuse interstitial infiltrate. Stable bibasilar alveolar infiltrates, right greater than left. No new abnormality. Dictated by: Dictated on workstation # [id number]
[2020-12-19] MEDS ORDERED: SULF1TAB38 PO (15:00)
[2020-12-19 15:14] VITALS: BP 105/62
== END 2020-12-19 15:14 | disposition home or self-care (01) ==
LOC: EDUNIT# 11:46 → ER 11:49
DX: C61 Malignant neoplasm of prostate (principal); C67.9 Malignant neoplasm of bladder, unspecified; I95.1 Orthostatic hypotension; N39.0 Urinary tract infection, site not specified; J44.9 Chronic obstructive pulmonary disease, unspecified; F32.9 Major depressive disorder, single episode, unspecified; E78.00 Pure hypercholesterolemia, unspecified; Z87.891 Personal history of nicotine dependence; Z79.82 Long term (current) use of aspirin; Z79.899 Other long term (current) drug therapy
CPT/HCPCS: 36415; 70450; 71045; 72125; 73060; 80053; 81000; 83735; 83874; 84484; 85025; 87077; 87088; 93005

== ENCOUNTER → 2021-01-18 | Outpatient (CLI) | payer MEDICARE ==
[~2021-01-18] MED LIST changes: +SULF1TAB38 PO
== END ==
LOC: RT 12:52
PROVIDERS: ATTEND Nurse Practitioner Family
DX: J44.9 Chronic obstructive pulmonary disease, unspecified (principal)

== ENCOUNTER 2021-03-09 13:14 | Outpatient (RCR) | payer MEDICARE | END 2021-04-07 | disposition home or self-care (01) | PROVIDERS: ATTEND Family Medicine | DX: R53.1 Weakness (principal); M25.511 Pain in right shoulder; W19.XXXA Unspecified fall, initial encounter ==

== ENCOUNTER → 2021-06-26 | Outpatient (CLI) | payer MEDICARE ==
--- NOTE | 2021-06-26 13:43 | Diagnostic Imaging Report ---
INDICATION: Fall with right shoulder pain. TIME OF EXAM: 1:12 PM. TECHNIQUE: Three views of the right shoulder were obtained. FINDINGS: The glenohumeral and acromioclavicular alignment is normal. The acromiohumeral space is normal. No fracture or dislocation is identified. Vague calcific densities are identified at the footprint. This could be owing to calcific tendinitis of the rotator cuff. There appear to be coarse pulmonary parenchymal lung markings. IMPRESSION: No acute fracture or dislocation is identified. There are small calcifications in the region of the foot print of the proximal humerus which can be seen with calcific tendinitis of the rotator cuff. Dictated by: Dictated on workstation # [id number]
== END ==
LOC: RAD 12:45
PROVIDERS: ATTEND Family Medicine
DX: M25.511 Pain in right shoulder (principal); W19.XXXA Unspecified fall, initial encounter
CPT/HCPCS: 73030

== ENCOUNTER → 2021-07-06 | Outpatient (RCR) | payer MEDICARE | END | disposition home or self-care (01) | PROVIDERS: ATTEND Family Medicine | DX: M25.511 Pain in right shoulder (principal) ==

== ENCOUNTER 2021-08-04 13:43 | Outpatient (RCR) | payer MEDICARE | END 2021-08-05 | disposition home or self-care (01) | PROVIDERS: ATTEND Family Medicine | DX: M25.511 Pain in right shoulder (principal) ==

== ENCOUNTER 2021-08-18 13:43 | Outpatient (RCR) | payer MEDICARE | END 2021-09-05 | disposition home or self-care (01) | PROVIDERS: ATTEND Family Medicine | DX: M25.511 Pain in right shoulder (principal) ==

== ENCOUNTER → 2021-09-12 | Outpatient (CLI) | payer MEDICARE ==
--- NOTE | 2021-09-12 13:42 | Diagnostic Imaging Report ---
INDICATION: Right shoulder pain. TIME OF EXAM: 1:15 PM. COMPARISON: Correlation is made with the prior radiograph from 06/26/2021. FINDINGS: The glenohumeral and acromioclavicular alignment is maintained. No fracture or dislocation is seen. The acromiohumeral space is within normal limits. IMPRESSION: No acute abnormality is detected. Dictated by: Dictated on workstation # [id number]
== END ==
LOC: ORTHO 13:07
PROVIDERS: ATTEND Orthopaedic Surgery
DX: M25.511 Pain in right shoulder (principal)
CPT/HCPCS: 73030; G0463; 99203

== ENCOUNTER 2021-10-03 13:14 | Outpatient (RCR) | payer MEDICARE | END 2021-10-05 | disposition home or self-care (01) | PROVIDERS: ATTEND Orthopaedic Surgery | DX: M25.811 Other specified joint disorders, right shoulder (principal) ==

== ENCOUNTER 2021-10-17 13:01 | Outpatient (RCR) | payer MEDICARE | END 2021-11-05 | disposition home or self-care (01) | PROVIDERS: ATTEND Orthopaedic Surgery | DX: M25.811 Other specified joint disorders, right shoulder (principal) ==

== ENCOUNTER → 2022-11-23 | Outpatient (CLI) | payer MEDICARE ==
[~2022-11-23] MED LIST changes: +CEPH500T PO
--- NOTE | 2022-11-23 11:14 | Diagnostic Imaging Report ---
INDICATION: History of COPD. COMPARISON: 12/19/2020 FINDINGS: Frontal and lateral radiographic views of the chest were obtained and show diffuse coarse prominence of the interstitium, similar compared to prior exam. There is no new focal alveolar consolidation, large effusion, nor pneumothorax. Cardiac silhouette and pulmonary vasculature are within normal limits. Osseous structures show no gross acute abnormalities. IMPRESSION: 1. Diffuse coarse interstitial opacities suggestive of chronic interstitial lung disease. 2. No other acute cardiopulmonary process is appreciated when compared to prior exam. Dictated by: Dictated on workstation # [id number]
== END ==
LOC: RAD 10:31
PROVIDERS: ATTEND Internal Medicine Critical Care Medicine
DX: J44.9 Chronic obstructive pulmonary disease, unspecified (principal); J96.11 Chronic respiratory failure with hypoxia; G47.33 Obstructive sleep apnea (adult) (pediatric); R91.8 Other nonspecific abnormal finding of lung field
CPT/HCPCS: 71046

== ENCOUNTER → 2023-02-08 | Outpatient (CLI) | payer MEDICARE ==
--- NOTE | 2023-02-08 12:34 | Diagnostic Imaging Report ---
REASON FOR EXAM: Wheezing. COPD. Chronic hypoxic respiratory failure. Shortness of breath. TIME OF CURRENT STUDY: 02/08/2023 8:23 AM COMPARISON: 11/23/2020. TECHNIQUE: Thin section high resolution noncontrast-enhanced axial images were obtained through the chest in supine inspiration and expiration and in prone inspiration, as per the department of CT high resolution chest protocol. All CT scans use one or more of the following dose optimizing techniques: automated exposure control, MA and/or KvP adjustment based on patient size and exam type or iterative reconstruction. FINDINGS: The heart size is normal. No pericardial effusion. There is calcified aortic and coronary atherosclerotic plaque without aneurysm. Mildly prominent mediastinal lymph nodes are seen. Inspiration: Emphysema is seen throughout the lungs with hyperinflated lung volumes. There is honeycombing in the lung bases with traction bronchiectasis. Subpleural reticular interstitial markings are seen throughout the lungs. No discrete mass. No focal consolidations. No central endobronchial obstructing lesions. No pleural effusion or pneumothorax. There is calcification along the pleura of the right lung base. Expiration: No evidence for focal air trapping. No overt airway collapse. Prone: Persistent honeycombing is seen on prone imaging. Limited views of the upper abdomen are unremarkable. The osseous structures are age appropriate. IMPRESSION: 1. Findings consistent with UIP pattern. This appearance has progressed since the prior exam from 2020. Recommend correlation with pulmonary function tests and follow-up, as indicated. 2. Mildly prominent mediastinal lymph nodes, likely reactive secondary to the chronic fibrotic changes. 3. Stable calcification along the pleura of the right lung base. Dictated by: Dictated on workstation # [id number]
== END ==
LOC: RAD 07:34
PROVIDERS: ATTEND Internal Medicine Critical Care Medicine
DX: I51.7 Cardiomegaly (principal); I34.0 Nonrheumatic mitral (valve) insufficiency; J84.9 Interstitial pulmonary disease, unspecified; J44.9 Chronic obstructive pulmonary disease, unspecified
CPT/HCPCS: 71250; C8929; 93306